=== PATIENT | female | born 1950 | race African-American/Black ===

== ENCOUNTER → 2017-05-28 08:50 | Outpatient (CLI) | payer MEDICARE, SELFPAY ==
--- NOTE | 2017-05-28 09:13 | RAD_ITS ---
STUDY: X-RAY - RIGHT SHOULDER REASON FOR EXAM: Female, 66 years old. Two-week history of right shoulder pain. TECHNIQUE: 4 view(s) of the shoulder. COMPARISON: None. FINDINGS: Normal glenohumeral articulation. There is degenerative arthrosis of the acromioclavicular joint without inferior osseous spur formation. Normal acromion. Normal humeral head and visualized proximal humerus. There is periarticular soft tissue calcification consistent with a calcific tendinitis. Normal visualized pulmonary apex. RAD/Shoulder min 2 Views IMPRESSION: Findings in keeping with calcific tendinitis of the right shoulder. Electronically Signed: Marcos Kaiser MD at 13:12 EDT Tel [phone], Service support ,
[2017-05-28 10:40] LABS: Microalbumin,Random Urine 28.9 mg/L (NO RANGE EST.); Microalbumin:Creatinine Ratio 33.7 mg/g CRE (<30 mg/g CRE)
[2017-05-28 10:52] LABS: AST(SGOT) 42 U/L (15-37); Alanine Aminotransfer ALT/SGPT 76 U/L (13-56); Albumin, Serum 4.2 g/dL (3.2-5.0); Alkaline Phosphatase 75 U/L (45-117); Anion Gap 10 (5-15); BUN 14 mg/dL (7-18); BUN/Creat Ratio 22.2 RATIO (10-20); Calcium,Total 9.3 mg/dL (8.5-10.1); Chloride 104 mmol/L (98-107); Creatinine, Serum 0.63 mg/dL (0.55-1.02); EST Glomerular Filtration Rate 101 mL/min (>60); Est Glom Filt Rate - Afr Amer 122 mL/min (>60); Globulin 4.3 g/dL (2.2-4.2); Glucose 123 mg/dL (74-106); Potassium 3.6 mmol/L (3.5-5.1); Protein, Total 8.5 g/dL (6.4-8.2); Sodium Level 139 mmol/L (136-145)
== END ==
PROVIDERS: Family Provider Family Medicine; PCP Family Medicine; Visit Provider Family Medicine
DX: E11.9 Type 2 diabetes mellitus without complications (principal); M25.519 Pain in unspecified shoulder
CPT/HCPCS: 36415; 73030; 80048; 80076; 82043; 82570

== ENCOUNTER 2017-07-02 11:00 | Outpatient (RCR) | payer MEDICARE, SELFPAY ==
--- NOTE | 2017-06-04 11:28 | HP.PTEVAL ---
Patient's Visit Information ALICE HOBBS is a 66 year old F referred to Physical Therapy by Solitario Waters with a diagnosis of R shoulder pain. Date of Evaluation: 06/04/17 Physical Therapist: Gabriela Che - Visit Plan Frequency: 2x /Week Duration: 4-6 Weeks Plan: 2X/ week for 4 weeks for R shoulder PROM, AAROM, AROM, joint mobs, RC and scapular strengthening, R shoulder US to decrease pain and increase circulation with HEP - Subjective Subjective: They x-rayed her R shoulder and said that it was arthritis. It has been bothering her for awhile. She is R handed. It hurts more with movement. She can sleep ok. She can do most everything but she feels it everyday. SHe can lay on her R shoulder. WHen it first started it was tingling but now not as much. SHe has no neck pain. Sometimes when she reaches she will get a painful catch. She retired from working at a [employer] with a lot of repeated movements. - Pain R shloulder pain Pain Intensity (Out of 10): 0 Comment: 4-5/10 with reaching - Objective L shoulder AROM: 140 degrees Flexion and abduction, 45 degrees ER, T8 IR. R shoulder AROM: 105 degrees flexion, 105 degrees abd, 45 degrees ER, and T12 IR. B UE MMT: B shld flex 4/5, R shld abd 4-/5 and L 4/5, R shld ER 4-/5 and L 4/5, B shld IR 4/5. Posture: good. Pt has increase tightness R pec musculature. Tender to palpation under the R acrominion. PROM R shoulder: able to get to approx 160 degrees with some pain at end range - Goals Goal 1:: I HEP Goal Time Frame: 4-6 Weeks Goal 2:: Increase R shoulder AROM to 140 degrees elevation Goal Time Frame: 4-6 Weeks Goal 3:: Decrease R shoulder pain to 1/10 with ADL's and movement of the R shoulder Goal Time Frame: 4-6 Weeks - Rehabilitation Potential Rehabilitation Potential: Good - Anticipated Interventions Patient/Client Instruction: Educate patient on: Condition, Plan of Care For the Purpose of:: To decrease pain, To decrease swelling/inflammation, To increase ROM, To improve nutrient delivery to tissue, To improve muscle performance and motor function, To improve ability to perform ADL's, To improve performance and independence with ADL's, To improve health of tissue, To decrease soft tissue restriction Therapeutic Exercise to Include: Strength training, Postural training, Flexibilty training, Passive ROM, Active ROM, Scapular Strength/Stabilization For the Purpose of:: To decrease pain, To decrease swelling/inflammation, To increase ROM, To improve nutrient delivery to tissue, To improve muscle performance and motor function, To increase tolerance to activity/condition/position, To improve health of tissue, To decrease soft tissue restriction, To increase flexibility/ROM Manual Therapy Techniques to Include: Mobilization, Passive ROM, Soft tissue mobilization For the Purpose of:: To decrease pain, To increase ROM, To improve nutrient delivery to tissue Cryotherapy (ice pack, ice massage): Yes Ultrasound (thermal/non thermal): Yes For the Purpose of:: To decrease pain, To improve nutrient delivery to tissue Thank you for the opportunity to evaluate your patient. For Medicare and Medicare HMO plans, please review the plan of care and approve it. It will need to be FAXED BACK to us at [phone] for Medicare purposes. Please let me know if there are questions or concerns regarding this plan of care. Physician Signature: Date:
--- NOTE | 2017-07-02 12:19 | HP.PTDCSUM_ITS ---
HP - PT D/C Summary It has been my pleasure to treat ALICE HOBBS under orders from Solitario Waters, for the diagnosis of R shoulder pain for a total of 9 visit(s). Discharge Date: 07/02/17 Please see the following information for a summary of their discharge status. - Subjective Subjective: Pt reports that she is doing better and that she only has pain if she reaches high. She feels that she can do her therapy at home. [facility] - Pain R shloulder pain Pain Intensity (Out of 10): 0 - Overall Improvement % Improvement: 75 - Objective Objective/Function: R shld flex 140 degrees. R shld abd 150 degrees. R shld flex 4/5, abd 4/5 and IR and 4/5 R - Goals Goal 1:: I HEP Goal Progress: Goal Met Goal 2:: Increase R shoulder AROM to 140 degrees elevation Goal Progress: Goal Met Goal 3:: Decrease R shoulder pain to 1/10 with ADL's and movement of the R shoulder Goal Progress: Goal Met - Plan Plan: DC PT to HEP - D/C Information Discharge Comments: DC PT to HEP. If there are questions or concerns regarding this patient's physical therapy, please feel free to call me at [phone]. Thank you for the referral of this patient. Sincerely, Gabriela Che
== END 2017-07-02 19:00 | disposition home or self-care (01) ==
LOC: PT 11:00
PROVIDERS: Family Provider Family Medicine; PCP Family Medicine; Visit Provider Family Medicine
DX: M25.511 Pain in right shoulder (principal)
CPT/HCPCS: 97035; 97110; 97161; 97530

== ENCOUNTER → 2017-12-04 11:19 | Outpatient (CLI) | payer MEDICARE, SELFPAY ==
[2017-12-04 14:20] LABS: AST(SGOT) 41 U/L (15-37); Alanine Aminotransfer ALT/SGPT 80 U/L (13-56); Alkaline Phosphatase 86 U/L (45-117); Anion Gap 10 (5-15); BUN 15 mg/dL (7-18); Bilirubin, Direct 0.15 mg/dL (0.00-0.30); Calcium,Total 9.6 mg/dL (8.5-10.1); Chloride 104 mmol/L (98-107); Cholesterol 116 mg/dL (200); Creatinine, Serum 0.65 mg/dL (0.55-1.02); EST Glomerular Filtration Rate 96 mL/min (>60); Est Glom Filt Rate - Afr Amer 117 mL/min (>60); Globulin 4.7 g/dL (2.2-4.2); Glucose 114 mg/dL (74-106); High Density Lipoprotein 35 mg/dL; Potassium 3.8 mmol/L (3.5-5.1); Protein, Total 8.7 g/dL (6.4-8.2); Sodium Level 140 mmol/L (136-145); Triglycerides 84 mg/dL; Very Low Density Lipoprotein 17 mg/dL (5-40)
[2017-12-04 14:32] LABS: Microalbumin,Random Urine 10.7 mg/L (NO RANGE EST.); Microalbumin:Creatinine Ratio 19.1 mg/g CRE (<30 mg/g CRE)
== END ==
PROVIDERS: Family Provider Family Medicine; PCP Family Medicine; Visit Provider Family Medicine
DX: E11.9 Type 2 diabetes mellitus without complications (principal)
CPT/HCPCS: 36415; 80048; 80061; 80076; 82043; 82570

== ENCOUNTER → 2018-02-09 12:11 | Outpatient (CLI) | payer MEDICARE, SELFPAY ==
--- NOTE | 2018-02-09 12:13 | BI_ITS ---
MAMMOGRAPHY - BILATERAL SCREENING REASON FOR EXAM: Female, 67 years old. Routine annual screening examination. PERTINENT HISTORY: Sister with breast cancer. TECHNIQUE: Digital bilateral breast lan (3D mammographic acquisition) in the CC and MLO projections. 2-D mediolateral oblique (MLO) and craniocaudad (CC) views of both breasts were obtained. CAD: Full Field Digital Mammography with Computer Added Detection was performed. COMPARISON: No comparison mammograms available at this time. If any prior films become available, an addendum to this report can be generated. FINDINGS: Breast Composition: There are scattered areas of fibroglandular density. There are no dominant masses or suspicious calcifications. Benign-appearing bilateral axillary lymph nodes. No other significant abnormalities are identified. BI/SCREENING MAMM (CAD), BILAT IMPRESSION: Negative screening mammogram. Yearly followup mammogram recommended. (A) ASSESSMENT CATEGORY: BIRADS Category 2: Benign. A letter regarding these results will be sent to the patient by the facility within 30 days. Approximately 10% of breast cancers are not detected by mammography. A normal mammogram should not delay biopsy of a clinically suspicious abnormality. [id number] Electronically Signed: Marcos Kaiser MD at 9:13 EST Tel [phone], Service support ,
== END ==
PROVIDERS: Family Provider Family Medicine; PCP Family Medicine; Referring Provider Family Medicine; Visit Provider Family Medicine
DX: Z12.31 Encounter for screening mammogram for malignant neoplasm of breast (principal)
CPT/HCPCS: 77063; 77067

== ENCOUNTER → 2018-06-04 | Outpatient (CLI) | payer MEDICARE, SELFPAY ==
[2018-06-04 12:41] LABS: AST(SGOT) 37 U/L (15-37); Alanine Aminotransfer ALT/SGPT 82 U/L (13-56); Albumin, Serum 4.2 g/dL (3.2-5.0); Alkaline Phosphatase 88 U/L (45-117); Anion Gap 7 (5-15); BUN 15 mg/dL (7-18); BUN/Creat Ratio 24.2 RATIO (10-20); Bilirubin, Direct 0.17 mg/dL (0.00-0.30); Calcium,Total 8.6 mg/dL (8.5-10.1); Chloride 103 mmol/L (98-107); Cholesterol 125 mg/dL (200); Creatinine, Serum 0.62 mg/dL (0.55-1.02); EST Glomerular Filtration Rate 102 mL/min (>60); Est Glom Filt Rate - Afr Amer 124 mL/min (>60); Globulin 3.6 g/dL (2.2-4.2); Glucose 156 mg/dL (74-106); High Density Lipoprotein 33 mg/dL; Potassium 3.8 mmol/L (3.5-5.1); Protein, Total 7.8 g/dL (6.4-8.2); Sodium Level 137 mmol/L (136-145); Triglycerides 96 mg/dL; Very Low Density Lipoprotein 19 mg/dL (5-40)
== END | disposition home or self-care (01) ==
LOC: MFPLAB 10:23
PROVIDERS: Family Provider Family Medicine; PCP Family Medicine; Referring Provider Family Medicine; Visit Provider Family Medicine
DX: E11.9 Type 2 diabetes mellitus without complications (principal)
CPT/HCPCS: 36415; 80048; 80061; 80076

== ENCOUNTER → 2018-09-03 | Outpatient (CLI) | payer MEDICARE, SELFPAY ==
[2018-09-03 10:34] LABS: Anion Gap 10 (5-15); BUN 19 mg/dL (7-18); BUN/Creat Ratio 30.2 RATIO (10-20); Calcium,Total 9.2 mg/dL (8.5-10.1); Chloride 103 mmol/L (98-107); Creatinine, Serum 0.63 mg/dL (0.55-1.02); EST Glomerular Filtration Rate 100 mL/min (>60); Est Glom Filt Rate - Afr Amer 121 mL/min (>60); Glucose 126 mg/dL (74-106); Potassium 3.6 mmol/L (3.5-5.1); Sodium Level 140 mmol/L (136-145)
== END | disposition home or self-care (01) ==
LOC: MFPLAB 08:30
PROVIDERS: Family Provider Family Medicine; PCP Family Medicine; Referring Provider Family Medicine; Visit Provider Family Medicine
DX: E11.9 Type 2 diabetes mellitus without complications (principal)
CPT/HCPCS: 36415; 80048

== ENCOUNTER → 2019-03-17 14:49 | Outpatient (CLI) | payer MEDICARE, SELFPAY ==
--- NOTE | 2019-03-17 14:51 | BI_ITS ---
MAMMOGRAPHY - BILATERAL SCREENING REASON FOR EXAM: Female, 68 years old. Routine annual screening examination. PERTINENT HISTORY: Sister with breast cancer. TECHNIQUE: Digital bilateral breast mere (3D mammographic acquisition) in the CC and MLO projections. 2-D mediolateral oblique (MLO) and craniocaudad (CC) views of both breasts were obtained. CAD: Full Field Digital Mammography with Computer Added Detection was performed. COMPARISON: Comparison is made with prior study dated February 09, 2018. FINDINGS: Breast Composition: There are scattered areas of fibroglandular density. There are no dominant masses or suspicious calcifications. Stable benign-appearing bilateral axillary lymph nodes. No other significant abnormalities are identified. There has been no significant change since the prior study. BI/SCREEN MAMM (CAD) W/MERE BILAT IMPRESSION: Stable bilateral screening mammogram. Yearly follow-up mammogram recommended. (A) ASSESSMENT CATEGORY: BIRADS Category 2: Benign. A letter regarding these results will be sent to the patient by the facility within 30 days. Approximately 10% of breast cancers are not detected by mammography. A normal mammogram should not delay biopsy of a clinically suspicious abnormality. [id number] Electronically Signed: Marcos Kaiser, at 15:39 EST , Service support ,
== END ==
PROVIDERS: PCP Family Medicine; Referring Provider Family Medicine; Visit Provider Family Medicine
DX: Z00.00 Encounter for general adult medical examination without abnormal findings (principal); Z12.31 Encounter for screening mammogram for malignant neoplasm of breast
CPT/HCPCS: 77063; 77067

== ENCOUNTER → 2019-09-01 | Outpatient (CLI) | payer MEDICARE, SELFPAY ==
[2019-09-01 11:07] LABS: Anion Gap 9 (5-15); BUN 15 mg/dL (7-18); BUN/Creat Ratio 23.8 RATIO (10-20); Calcium,Total 9.3 mg/dL (8.5-10.1); Chloride 103 mmol/L (98-107); Creatinine, Serum 0.63 mg/dL (0.55-1.02); EST Glomerular Filtration Rate 100 mL/min (>60); Est Glom Filt Rate - Afr Amer 121 mL/min (>60); Glucose 130 mg/dL (74-106); Potassium 3.4 mmol/L (3.5-5.1); Sodium Level 137 mmol/L (136-145)
== END | disposition home or self-care (01) ==
LOC: MFPLAB 08:32
PROVIDERS: PCP Family Medicine; Visit Provider Family Medicine
DX: I10 Essential (primary) hypertension (principal)
CPT/HCPCS: 36415; 80048

== ENCOUNTER → 2020-03-06 14:24 | Outpatient (CLI) | payer MEDICARE, SELFPAY ==
[2020-03-06 18:38] LABS: Anion Gap 8 (5-15); BUN 14 mg/dL (7-18); BUN/Creat Ratio 24.3 RATIO (10-20); Calcium,Total 9.9 mg/dL (8.5-10.1); Chloride 104 mmol/L (98-107); Cholesterol 116 mg/dL (200); Creatinine, Serum 0.58 mg/dL (0.55-1.02); EST Glomerular Filtration Rate 111 mL/min (>60); Est Glom Filt Rate - Afr Amer 134 mL/min (>60); Glucose 86 mg/dL (74-106); High Density Lipoprotein 35 mg/dL; Potassium 3.6 mmol/L (3.5-5.1); Sodium Level 138 mmol/L (136-145); Triglycerides 96 mg/dL; Very Low Density Lipoprotein 19 mg/dL (5-40)
== END ==
PROVIDERS: PCP Family Medicine; Visit Provider Family Medicine
DX: E11.9 Type 2 diabetes mellitus without complications (principal)
CPT/HCPCS: 36415; 80048; 80061

== ENCOUNTER → 2020-03-20 | Outpatient (CLI) | payer MEDICARE, SELFPAY | END | disposition home or self-care (01) | LOC: LABSPEC 15:15 | PROVIDERS: PCP Family Medicine; Referring Provider Family Medicine; Visit Provider Family Medicine | DX: U07.1 COVID-19 (principal) | CPT/HCPCS: 87635; U0005; U0003 ==

== ENCOUNTER → 2020-04-11 12:17 | Outpatient (CLI) | payer MEDICARE, SELFPAY ==
--- NOTE | 2020-04-11 12:19 | BI_ITS ---
MAMMOGRAPHY - BILATERAL SCREENING REASON FOR EXAM: Female, 69 years old. Routine annual screening examination. PERTINENT HISTORY: Sister with breast cancer. TECHNIQUE: Digital bilateral breast mere (3D mammographic acquisition) in the CC and MLO projections. 2-D mediolateral oblique (MLO) and craniocaudad (CC) views of both breasts were obtained. CAD: Full Field Digital Mammography with Computer Added Detection was performed. COMPARISON: Comparison is made with prior study dated 03/17/2019 and 02/09/2018. FINDINGS: Breast Composition: There are scattered areas of fibroglandular density. There are no dominant masses or suspicious calcifications. Stable benign-appearing bilateral axillary lymph nodes. No other significant abnormalities are identified. There has been no significant change since the prior study. BI/SCRN MAMM (CAD)W/MERE BILAT IMPRESSION: Stable bilateral screening mammogram. Yearly follow-up mammogram recommended. (A) ASSESSMENT CATEGORY: BIRADS Category 2: Benign. A letter regarding these results will be sent to the patient by the facility within 30 days. Approximately 10% of breast cancers are not detected by mammography. A normal mammogram should not delay biopsy of a clinically suspicious abnormality. [id number] Electronically Signed: Marcos Kaiser MD at 13:52 EST , Service support ,
== END ==
PROVIDERS: PCP Family Medicine; Referring Provider Family Medicine; Visit Provider Family Medicine
DX: Z12.31 Encounter for screening mammogram for malignant neoplasm of breast (principal)
CPT/HCPCS: 77063; 77067

== ENCOUNTER → 2020-12-01 09:00 | Outpatient (CLI) | payer MEDICARE, SELFPAY ==
--- NOTE | 2020-12-01 09:09 | RAD_ITS ---
STUDY: X-RAY - RIGHT HAND REASON FOR EXAM: Female, 70 years old. PAIN TECHNIQUE: 3 view(s) of the hand. COMPARISON: None. FINDINGS: Normal radiocarpal articulation. Normal distal radioulnar joint. Normal visualized carpal bones. Normal carpal articulations Normal carpometacarpal articulation of the thumb. Normal second through fifth carpometacarpal joints. Normal metacarpi. Normal metacarpophalangeal joint of the thumb. Normal interphalangeal joint of the thumb. Normal proximal and distal phalanges of the thumb. Normal metacarpophalangeal joints of the second through fifth fingers. Normal proximal and distal interphalangeal joints of the second through fifth fingers. Normal phalanges of the second through fifth fingers. Mild soft tissue edema in the third finger. RAD/Hand Min 3 Views IMPRESSION: No acute bony injury of the hand. Electronically Signed: John Neff DO at 23:55 EDT Tel [phone], Service support ,
[2020-12-01 10:13] LABS: Anion Gap 5 (5-15); BUN 17 mg/dL (7-18); BUN/Creat Ratio 27.5 RATIO (10-20); Calcium,Total 9.5 mg/dL (8.5-10.1); Chloride 105 mmol/L (98-107); Creatinine, Serum 0.62 mg/dL (0.55-1.02); EST Glomerular Filtration Rate 102 mL/min (>60); Est Glom Filt Rate - Afr Amer 123 mL/min (>60); Glucose 145 mg/dL (74-106); Potassium 3.8 mmol/L (3.5-5.1); Sodium Level 140 mmol/L (136-145); Uric Acid 3.5 mg/dL (2.6-6.0)
== END ==
PROVIDERS: PCP Family Medicine; Referring Provider Family Medicine; Visit Provider Family Medicine
DX: M79.643 Pain in unspecified hand (principal); E78.5 Hyperlipidemia, unspecified
CPT/HCPCS: 36415; 73130; 80048; 84550

== ENCOUNTER 2021-06-04 08:56 | Outpatient (CLI) | payer OTHER, SELFPAY ==
[2021-06-04 12:27] LABS: Anion Gap 10 (5-15); BUN 15 mg/dL (7-18); BUN/Creat Ratio 22.5 RATIO (10-20); Calcium,Total 9.7 mg/dL (8.5-10.1); Chloride 102 mmol/L (98-107); Creatinine, Serum 0.67 mg/dL (0.55-1.02); EST Glomerular Filtration Rate 93 mL/min (>60); Est Glom Filt Rate - Afr Amer 112 mL/min (>60); Glucose 113 mg/dL (74-106); Potassium 3.2 mmol/L (3.5-5.1); Sodium Level 139 mmol/L (136-145)
== END 2021-06-04 23:59 | disposition home or self-care (01) ==
LOC: MFPLAB 08:57
PROVIDERS: PCP Family Medicine; Visit Provider Family Medicine
DX: E11.9 Type 2 diabetes mellitus without complications (principal)
CPT/HCPCS: 36415; 80048

== ENCOUNTER → 2022-05-29 | Outpatient (CLI) | payer OTHER, SELFPAY ==
[2022-05-29 11:07] LABS: Anion Gap 5 (5-15); BUN 13 mg/dL (7-18); BUN/Creat Ratio 19.4 RATIO (10-20); Calcium,Total 9.3 mg/dL (8.5-10.1); Chloride 106 mmol/L (98-107); Creatinine, Serum 0.67 mg/dL (0.55-1.02); EST Glomerular Filtration Rate 92 mL/min (>60); Est Glom Filt Rate - Afr Amer 112 mL/min (>60); Glucose 114 mg/dL (74-106); Potassium 3.6 mmol/L (3.5-5.1); Sodium Level 138 mmol/L (136-145)
[2022-05-29 11:23] LABS: Microalbumin,Random Urine 18.9 mg/L (NO RANGE EST.); Microalbumin:Creatinine Ratio 42.5 mg/g CRE (<30 mg/g CRE)
== END | disposition home or self-care (01) ==
LOC: MFPLAB 08:48
PROVIDERS: PCP Family Medicine; Referring Provider Family Medicine; Visit Provider Family Medicine
DX: E11.9 Type 2 diabetes mellitus without complications (principal)
CPT/HCPCS: 36415; 80048; 82043; 82570

== ENCOUNTER → 2022-12-06 | Outpatient (CLI) | payer MEDICARE, SELFPAY ==
[2022-12-06 10:26] LABS: Microalbumin,Random Urine 19.2 mg/L (NO RANGE EST.); Microalbumin:Creatinine Ratio 41.2 mg/g CRE (<30 mg/g CRE)
[2022-12-06 11:16] LABS: ALB/GLOB Ratio 0.9 RATIO (0.9-2.4); AST(SGOT) 27 U/L (15-37); Alanine Aminotransfer ALT/SGPT 58 U/L (13-56); Alkaline Phosphatase 80 U/L (45-117); Anion Gap 9 (5-15); BUN 21 mg/dL (7-18); BUN/Creat Ratio 28.5 RATIO (10-20); Calcium,Total 9.8 mg/dL (8.5-10.1); Chloride 104 mmol/L (98-107); Cholesterol 105 mg/dL (200); Creatinine, Serum 0.74 mg/dL (0.55-1.02); EST Glomerular Filtration Rate 83 mL/min (>60); Est Glom Filt Rate - Afr Amer 100 mL/min (>60); Globulin 4.7 g/dL (2.2-4.2); Glucose 128 mg/dL (74-106); High Density Lipoprotein 28 mg/dL; Potassium 3.5 mmol/L (3.5-5.1); Protein, Total 8.7 g/dL (6.4-8.2); Sodium Level 138 mmol/L (136-145); Triglycerides 169 mg/dL; Very Low Density Lipoprotein 34 mg/dL (5-40)
== END | disposition home or self-care (01) ==
PROVIDERS: PCP Family Medicine; Referring Provider Family Medicine; Visit Provider Family Medicine
DX: E11.9 Type 2 diabetes mellitus without complications (principal)
CPT/HCPCS: 36415; 80053; 80061; 82043; 82570

== ENCOUNTER → 2023-06-05 | Outpatient (CLI) | payer MEDICARE, SELFPAY ==
[2023-06-05 10:35] LABS: Anion Gap 5 (5-15); BUN 17 mg/dL (7-18); BUN/Creat Ratio 25.8 RATIO (10-20); Calcium,Total 9.5 mg/dL (8.5-10.1); Chloride 105 mmol/L (98-107); Cholesterol 136 mg/dL (200); Creatinine, Serum 0.66 mg/dL (0.55-1.02); EST Glomerular Filtration Rate 94 mL/min (>60); Est Glom Filt Rate - Afr Amer 114 mL/min (>60); Glucose 119 mg/dL (74-106); High Density Lipoprotein 30 mg/dL; Potassium 3.3 mmol/L (3.5-5.1); Sodium Level 138 mmol/L (136-145); Triglycerides 127 mg/dL; Very Low Density Lipoprotein 25 mg/dL (5-40)
== END | disposition home or self-care (01) ==
LOC: MFPLAB 08:20
PROVIDERS: PCP Family Medicine; Visit Provider Family Medicine
DX: I10 Essential (primary) hypertension (principal)
CPT/HCPCS: 36415; 80048; 80061

== ENCOUNTER → 2023-06-11 | Outpatient (CLI) | payer MEDICARE, SELFPAY ==
--- NOTE | 2023-06-11 08:45 | BI_ITS ---
MAMMOGRAPHY - BILATERAL SCREENING REASON FOR EXAM: Female, 72 years old. Routine annual screening examination. PERTINENT HISTORY: Sister with breast cancer. TECHNIQUE: Digital bilateral breast mere (3D mammographic acquisition) in the CC and MLO projections. 2-D mediolateral oblique (MLO) and craniocaudad (CC) views of both breasts were obtained. CAD: Full Field Digital Mammography with Computer Added Detection was performed. COMPARISON: Comparison is made with prior study dated April 11, 2020 and March 17, 2019. FINDINGS: Breast Composition: There are scattered areas of fibroglandular density. There are no dominant masses or suspicious calcifications. Stable bilateral fat containing axillary lymph nodes. No other significant abnormalities are identified. There has been no significant change since the prior study. BI/SCRN MAMM (CAD)W/MERE BILAT IMPRESSION: Stable bilateral screening mammogram. Yearly follow-up mammogram recommended. (A) ASSESSMENT CATEGORY: BIRADS Category 2: Benign. A letter regarding these results will be sent to the patient by the facility within 30 days. Approximately 10% of breast cancers are not detected by mammography. A normal mammogram should not delay biopsy of a clinically suspicious abnormality. [id number] Electronically Signed: Marcos Kaiser MD at 9:51 EDT ,
== END | disposition home or self-care (01) ==
LOC: OPBI 08:43
PROVIDERS: PCP Family Medicine; Referring Provider Family Medicine; Visit Provider Family Medicine
DX: Z12.31 Encounter for screening mammogram for malignant neoplasm of breast (principal); Z80.3 Family history of malignant neoplasm of breast
CPT/HCPCS: 77063; 77067

== ENCOUNTER → 2023-09-03 | Outpatient (CLI) | payer MEDICARE, SELFPAY ==
[2023-09-03 12:26] LABS: Anion Gap 9 (5-15); BUN 19 mg/dL (7-18); BUN/Creat Ratio 26.1 RATIO (10-20); Calcium,Total 9.9 mg/dL (8.5-10.1); Chloride 101 mmol/L (98-107); Creatinine, Serum 0.73 mg/dL (0.55-1.02); EST Glomerular Filtration Rate 84 mL/min (>60); Est Glom Filt Rate - Afr Amer 101 mL/min (>60); Glucose 116 mg/dL (74-106); Potassium 3.3 mmol/L (3.5-5.1); Sodium Level 138 mmol/L (136-145)
== END | disposition home or self-care (01) ==
LOC: MFPLAB 08:53
PROVIDERS: PCP Family Medicine; Visit Provider Family Medicine
DX: E11.9 Type 2 diabetes mellitus without complications (principal)
CPT/HCPCS: 36415; 80048

== ENCOUNTER → 2023-12-04 | Outpatient (CLI) | payer MEDICARE, SELFPAY ==
[2023-12-04 11:14] LABS: Anion Gap 8 (5-15); BUN 17 mg/dL (7-18); BUN/Creat Ratio 21.7 RATIO (10-20); Calcium,Total 10.3 mg/dL (8.5-10.1); Chloride 102 mmol/L (98-107); Creatinine, Serum 0.78 mg/dL (0.55-1.02); EST Glomerular Filtration Rate 77 mL/min (>60); Est Glom Filt Rate - Afr Amer 93 mL/min (>60); Glucose 115 mg/dL (74-106); Potassium 3.2 mmol/L (3.5-5.1); Sodium Level 138 mmol/L (136-145)
== END | disposition home or self-care (01) ==
LOC: MFPLAB 09:04
PROVIDERS: PCP Family Medicine; Visit Provider Family Medicine
DX: E87.6 Hypokalemia (principal)
CPT/HCPCS: 36415; 80048

== ENCOUNTER → 2024-06-03 | Outpatient (CLI) | payer MEDICARE, SELFPAY ==
[2024-06-03 10:38] LABS: ALB/GLOB Ratio 1.2 RATIO (0.9-2.4); AST(SGOT) 33 U/L (<=31); Alanine Aminotransfer ALT/SGPT 46 U/L (<=34); Albumin, Serum 4.4 g/dL (3.4-4.8); Alkaline Phosphatase 72 U/L (35-104); Anion Gap 15 (5-15); BUN 19 mg/dL (4-19); BUN/Creat Ratio 20.4 RATIO (10-20); Calcium,Total 10.4 mg/dL (7.6-11.0); Carbon Dioxide 23.7 mmol/L (21.0-32.0); Chloride 99 mmol/L (98-108); Cholesterol 118 mg/dL (<=200); Creatinine, Serum 0.95 mg/dL (0.70-1.20); EST Glomerular Filtration Rate 64 (>60); Globulin 3.8 g/dL (2.2-4.2); Glucose 116 mg/dL (70-99); High Density Lipoprotein 31 mg/dL; Low Density Lipoprotein Calc. 62 mg/dL; Potassium 3.7 mmol/L (3.3-5.1); Protein, Total 8.3 g/dL (5.9-8.4); Sodium Level 138 mmol/L (133-145); Total Bilirubin 0.36 mg/dL (0.00-1.30); Triglycerides 124 mg/dL; Very Low Density Lipoprotein 25 mg/dL (5-40); cholesterol:hdl ratio screen 3.77
[2024-06-03 11:38] LABS: Microalbumin:Creatinine Ratio 2933.5 mg/g CRE
== END | disposition home or self-care (01) ==
PROVIDERS: PCP Family Medicine; Referring Provider Family Medicine; Visit Provider Family Medicine
DX: E11.9 Type 2 diabetes mellitus without complications (principal)
CPT/HCPCS: 36415; 80053; 80061; 82043; 82570

== ENCOUNTER → 2024-06-21 | Outpatient (CLI) | payer MEDICARE, SELFPAY ==
--- NOTE | 2024-06-21 07:36 | BI_ITS ---
EXAM: SCRN MAMM (CAD)W/MERE BILAT DATE: 06/21/2024 CLINICAL HISTORY: F, Age 73 y/o , SCREENING BREAST CANCER RISK ASSESSMENT: Has not been calculated. TECHNIQUE: Bilateral screening digital breast tomosynthesis with 2D and 3D images. Computer aided detection. COMPARISON: Prior exam(s) dated 06/11/2023 and 04/11/2019. FINDINGS: TISSUE DENSITY: The breast tissue is composed of scattered area of fibroglandular density. Bilateral Breast Mammographic Findings: No significant masses, calcifications or other abnormalities are identified. Benign round microcalcifications are seen in both breasts. BI/SCRN MAMM (CAD)W/MERE BILAT IMPRESSION: OVERALL FINAL ASSESSMENT: BIRADS 2 BENIGN FINDING RECOMMENDATION: Routine annual follow-up in 1 Year A letter with findings and recommendations will be mailed to the patient. Reading Location: [id number]
== END | disposition home or self-care (01) ==
PROVIDERS: PCP Family Medicine; Referring Provider Family Medicine; Visit Provider Family Medicine
DX: Z12.31 Encounter for screening mammogram for malignant neoplasm of breast (principal)
CPT/HCPCS: 77063; 77067

== ENCOUNTER 2024-07-28 06:27 | Day surgery (SDC) | payer MEDICARE, SELFPAY ==
--- NOTE | 2024-07-26 15:00 | PAT.ANESEVAL ---
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 When Was Last Pacemaker Check QUESTION #4 FULL TEXT: You/Your Family Experience fever (hyperthermia) with Anesthesia Last Oral Intake Last Oral intake: Last Oral Intake NPO since Meds taken in AM with sips of water? 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 Has anyone observed you stop No 07/26/24 09:25 breathing during sleep? STOP Results Negative 07/26/24 09:25 QUESTION #5 FULL TEXT : Do you snore loudly (louder than talking or can be heard through closed doors)? 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 Specify any problems Hx of Preganancy in last 3 No 07/26/24 09:25 Months Nurse Filling Out Transfusion JZOLLINGE 07/26/24 09:25 & Questions: Date: 07/26/24 07/26/24 09:25 Time: 07/26/24 09:25 Patient unable to answer at this time (ie. 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: /Reproductive Hx- box sealing machine operator Hx Now No 07/26/24 09:25 Gestational Age (in weeks): EDC: Hx Hx Para Hx Section SAB No 07/26/24 09:25 [facility] Medical History (Updated 07/26/24 @ 09:38 by Andreia Monahan) Hx of electrocardiogram Wears dentures Wears glasses Diabetes Dietary restriction Non-smoker Shortness of breath on exertion History of stress test Home Medications ?Medication ?Instructions ?Recorded ?Last Taken ?Type amlodipine 10 mg tablet 10 mg PO DAILY 07/26/24 Unknown History clonidine HCl 0.1 mg tablet 0.1 mg PO BID 07/26/24 Unknown History empagliflozin 10 mg tablet 10 mg PO DAILY 07/26/24 Unknown History (Jardiance) hydrochlorothiazide 25 mg tablet 25 mg PO DAILY 07/26/24 Unknown History losartan 100 mg tablet 100 mg PO DAILY 07/26/24 Unknown History metformin 1,000 mg tablet 1,000 mg PO BID 07/26/24 Unknown History metoprolol tartrate 50 mg tablet 50 mg PO BID 07/26/24 Unknown History potassium chloride 20 mEq 20 meq PO DAILY 07/26/24 Unknown History tablet,extended release rosuvastatin 20 mg tablet 20 mg PO DAILY 07/26/24 Unknown History Allergy/AdvReac Type Severity Reaction Status Date / Time No Known Allergies Allergy Verified 07/26/24 09:13 Surgical History (Updated 07/26/24 @ 09:38 by Andreia Monahan) Hx of colonoscopy History of heart surgery Social History Smoking Status: Never smoker Audit: Pertinent Findings Pertinent Findings EKG Perinent findings: 2020. Sinus tachycardia [address] and T wave abnormality. Recommendation Anesthesia Recommendation Anesthesia recommendation: OPTIMIZED for anesthesia
[2024-07-28] VITALS (7 sets, daily range): BP systolic 105–132; BP diastolic 50–65; PULSE 74–80; RESP 14–16; TEMP 36.3–36.4; O2SAT 98–100; BMI 27.6
--- OUTSIDE RECORDS SUMMARY | 2024-07-28 06:29 | XMS RPT_ITS | CCD ---
Author Organization [facility] Care Team Providers Care Dispensary Clerk Name Role Phone Evelin PERES, Dr. Jerez Primary Care Provider Evelin PERES, Dr. Jerez Attending Provider [phone] Evelin PERES, Dr. Jerez Referring Provider Solitario Waters Attending Unavailable Evelin, Solitario Primary Care Unavailable Waters, Solitario Referring Unavailable Waters, Solitario Attending Unavailable Waters, Solitario Primary Care Unavailable Waters, Solitario Referring Unavailable Robotham, Marleni Attending Unavailable Waters, Solitario Primary Care Unavailable Waters, Solitario Referring Unavailable Waters, Solitario Attending Unavailable Waters, Solitario Primary Care Unavailable Waters, Solitario Attending Unavailable Waters, Solitario Primary Care Unavailable Problems Active Problems Problem Classification Problem Date Documented Da te Episodic/Chronic Diabetes mellitus without complication (1 source) Type 2 diabetes mellitus without complications; Translations: [Type 2 diabetes mellitus without complications] Onset: 06-08-2024 Chronic Other screening for suspected conditions (not mental disorders or infectious disease) (1 source) Encounter for screening mammogram for malignant neoplasm of breast; Translations: [Encounter for screening mammogram for malignant neoplasm of breast] Onset: 06-25-2024 Episodic Past or Other Problems Problem Classification Problem Date Documented Da te Episodic/Chronic Fluid and electrolyte disorders (1 source) Hypokalemia; Translations: [Hypokalemia] Onset: 12-25-2023 Episodic Results Test Name Value Interpretation Reference Range Facility MR/PATFamilia 07-26-2024 /[facility] [place] [facility] Medical Records Department [address] [place] [address] PAT - Anesthesia 07/26/24 1500 MR#: [id number] Acct: [id number] Name: ALICE HOBBS Rep #: [id number] : 1950 73 From: Chip Villeda MD PCP: Dr. Solitario Waters MD Status:PRE SDC Y Race: AA Location: EN Pre-Assessment Diagnosis/Proposed Procedure Planned Operative Procedure(s): Colonoscopy Anesthesia History Anesthesia History - fan balancer: Anesthesia History - fan balancer Hx Hospitalization No 07/26/24 09:25 Any Problems With Anesthesia No 07/26/24 09:25 Cholinesterase deficiency No 07/26/24 09:25 You/Your Family Experience No 07/26/24 09:25 fever (hyperthermia) with Relationship Recent Exposure to Contagious Disease Does patient have nerve No 07/26/24 09:25 stimulator Patient instructed to have device shut off --Does patient have Pacemaker or ICD? When Was Last Pacemaker Check QUESTION #4 FULL TEXT: You/Your Family Experience fever (hyperthermia) with Anesthesia Last Oral Intake Last Oral intake: Last Oral Intake NPO since Meds taken in AM with sips of water? Meds patient instructed to take am of surgery PONV PONV - fan balancer: PONV - fan balancer Female Yes 07/26/24 09:25 HX of Motion Sickness No 07/26/24 09:25 HX of N/V After Surgery No 07/26/24 09:25 Non-Smoker Yes 07/26/24 09:25 Duration of Surgery greater No 07/26/24 09:25 than 60 minutes Number of Risk Factors 2 07/26/24 09:25 PONV Score Moderate Risk 07/26/24 09:25 Respiratory Assessment Respiratory Assessment - fan balancer: Respiratory Tract Infection Hx - fan balancer Hx Respiratory Tract Infection No 07/26/24 09:25 STOP Sleep Apnea STOP Sleep Apnea - fan balancer: STOP Sleep Apnea - fan balancer Hx Hypertension Yes 07/26/24 09:25 Hx Sleep Apnea No 07/26/24 09:25 CPAP BIPAP Do you snore loudly (louder No 07/26/24 09:25 than talking or can be heard Do you often feel tired/ No 07/26/24 09:25 fatigued/ sleepy during daytime? Has anyone observed you stop No 07/26/24 09:25 breathing during sleep? STOP Results Negative 07/26/24 09:25 QUESTION #5 FULL TEXT : Do you snore loudly (louder than talking or can be heard through closed doors)? 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 Specify any problems Hx of Preganancy in last 3 No 07/26/24 09:25 Months Nurse Filling Out Transfusion JZOLLGERTRUDIS 07/26/24 09:25 Questions: Date: 07/26/24 07/26/24 09:25 Time: 07/26/24 09:25 Patient unable to answer at this time (ie. confused, unrespo /Reproduction History /Reproductive History - fan balancer: /Reproductive Hx- fan balancer Hx Now No 07/26/24 09:25 Gestational Age (in weeks): EDC: Hx Hx Para Hx Section SAB No 07/26/24 09:25 REPLACED BY [facility] Medical History (Updated 07/26/24 @ 09:38 by Andreia Monahan) Hx of electrocardiogram Wears dentures Wears glasses Diabetes Dietary restriction Non-smoker Shortness of breath on exertion History of stress test Home Medications ???Medication ???Instructions ???Recorded ???Last Taken ???Type amlodipine 10 mg tablet 10 mg PO DAILY 07/26/24 Unknown Hi story clonidine HCl 0.1 mg tablet 0.1 mg PO BID 07/26/24 Unknown His tory empagliflozin 10 mg tablet 10 mg PO DAILY 07/26/24 Unknown Hi story (Jardiance) hydrochlorothiazide 25 mg tablet 25 mg PO DAILY 07/26/24 Unknown Hi story losartan 100 mg tablet 100 mg PO DAILY 07/26/24 Unknown H istory metformin 1,000 mg tablet 1,000 mg PO BID 07/26/24 Unknown H istory metoprolol tartrate 50 mg tablet 50 mg PO BID 07/26/24 Unknown Hist ory potassium chloride 20 mEq 20 meq PO DAILY 07/26/24 Unknown H istory tablet,extended release rosuvastatin 20 mg tablet 20 mg PO DAILY 07/26/24 Unknown Hi story Allergy/AdvReac Type Severity Reaction Status Date / Time No Known Allergies Allergy Verifi (more content not included)... Normal [facility] Breast imaging reportOrdered By: Radha Billingsley on 06-21-2024 Study report [facility] Imaging Services [address] [place] [address] SCRN MAMM (CAD)W/MERE BILAT MR#: [id number] Acct: [id number] Name: ALICE HOBBS Rep #: [id number] : 1950 F 73 From: Jacob Billingsley DO PCP: Dr. Solitario Waters MD Status: RYLEY WORRELL Study:SCRN MAMM (CAD)W/MERE BILAT Date of Exa m: 06/21/24 Exam# [id number] Ordering Dr: Solitario Waetrs MD EXAM: SCRN MAMM (CAD)W/MERE BILAT DATE: 06/21/2024 CLINICAL HISTORY: F, Age 73 y/o , SCREENING BREAST CANCER RISK ASSESSMENT: Has not been calculated. TECHNIQUE: Bilateral screening digital breast tomosynthesis with 2D and 3D images. Computeraided detection. COMPARISON: Prior exam(s) dated 06/11/2023 and 04/11/2019. FINDINGS: TISSUE DENSITY: The breast tissue is composed of scattered area of fibroglandular density. Bilateral Breast Mammographic Findings: No significant masses, calcifications or other abnormalities are identified. Benign round microcalcifications are seen in both breasts. BI/SCRN MAMM (CAD)W/MERE BILAT IMPRESSION: OVERALL FINAL ASSESSMENT: BIRADS 2 BENIGN FINDING RECOMMENDATION: Routine annual follow-up in 1 Year A letter with findings and recommendations will be mailed to the patient. Reading Location: [id number] CC: Dr. Solitario Waters MD ~ Guest Relations Agent: Signed [facility] SCRN MAMM (CAD)W/MERE BILATo n 06-21-2024 SCRN MAMM (CAD)W/MERE BILAT [facility] Imaging Services [address] [place] [address] SCRN MAMM (CAD)W/MERE BILAT MR#: [id number] Acct: [id number] Name: ALICE HOBBS Rep #: [id number] : 1950 F 73 From: Radha Anderson O PCP: Dr. Solitario Waters MD Status: REG CLI Study: SCRN MAMM (CAD)W/MERE BILAT Date of Exam: 07/11 Exam# [id number] Ordering Dr: Solitario Waters MD EXAM: SCRN MAMM (CAD)W/MERE BILAT DATE: 06/21/2024 CLINICAL HISTORY: F, Age 73 y/o , SCREENING BREAST CANCER RISK ASSESSMENT: Has not been calculated. TECHNIQUE: Bilateral screening digital breast tomosynthesis with 2D and 3D images. Computer aided detection. COMPARISON: Prior exam(s) dated 06/11/2023 and 04/11/2019. FINDINGS: TISSUE DENSITY: The breast tissue is composed of scattered area of fibroglandular density. Bilateral Breast Mammographic Findings: No significant masses, calcifications or other abnormalities are identified. Benign round microcalcifications are seen in both breasts. BI/SCRN MAMM (CAD)W/MERE BILAT IMPRESSION: OVERALL FINAL ASSESSMENT: BIRADS 2 BENIGN FINDING RECOMMENDATION: Routine annual follow-up in 1 Year A letter with findings and recommendations will be mailed to the patient. Reading Location: [facility] CC: Dr. Solitario Waters MD Guest Relations Agent: Signed Normal [facility] Albumin DL <= 20 mg/L (U) [M ass/Vol]Ordered By: Solitario Waters on 06-03-2024 Urine Random Microalbumin 181.0 mg/L NO RANGE EST. [facility] Anion gap in Serum or Plasma Ordered By: Solitario Waters on 06-03-2024 Anion gap [Moles/Vol] 15 mmol/L 5-15 [facility] BUN/creatinine ratioOrdered By: Solitario Waters on 06-03-2024 Urea nitrogen/Creatinine [Mass ratio] 20.4 mg/mg High 10-20 [facility] Bilirubin, totalOrdered By: Solitario Waters on 06-03-2024 Bilirubin [Mass/Vol] 0.36 mg/dL 0.00-1.30 [facility] Calculated very low density lipoprotein (VLDL) cholesterol measurementOrdered By: Solitario Waters on 06-03-2024 Calculated very low density lipoprotein (VLDL) cholesterol measurement 25 mg/dL 5-40 [facility] VLDL Cholesterol 25 mg/dL 5-40 [facility] Carbon dioxide, total [Moles /volume] in Central venous bloodOrdered By: Solitario Waters on 06-03-2024 CO2 [Moles/Vol] 23.7 mmol/L 21.0-32.0 [facility] Chloride assayOrdered By: Tremayne Waters on 06-03-2024 Chloride [Moles/Vol] 99 mmol/L 98-108 [facility] Comprehensive Metabolic Prof ilon 06-03-2024 Albumin [Mass/Vol] 4.4 g/dL Normal 3.4-4.8 [facility] Comment on above: Performed By: #### L 500.4050, L500.4100, L502.0250 #### [facility] [address] [place], [address] Albumin/Globulin [Mass ratio] 1.2 {ratio} Normal 0.9-2.4 [facility] Comment on above: Performed By: #### L 500.4050, L500.4100, L502.0250 #### [facility] [address] [place], [address] ALK PHOS 72 U/L Normal 35-104 [facility] Comment on above: Performed By: #### L 500.4050, L500.4100, L502.0250 #### [facility] [address] [place], [address] ALT [Catalytic activity/Vol] 46 U/L High <=34 [facility] Comment on above: Performed By: #### L 500.4050, L500.4100, L502.0250 #### [facility] [address] [place], [address] AST [Catalytic activity/Vol] 33 U/L High <=31 [facility] Comment on above: Performed By: #### L 500.4050, L500.4100, L502.0250 #### [facility] [address] [place], [address] Bilirubin [Mass/Vol] 0.36 mg/dL Normal 0.00-1.30 [facility] Comment on above: Performed By: #### L 500.4050, L500.4100, L502.0250 #### [facility] [address] [place], [address] BUN/CRE 20.4 RATIO High 10-20 [facility] Comment on above: Performed By: #### L 500.4050, L500.4100, L502.0250 #### [facility] [address] [place], [address] Calcium [Mass/Vol] 10.4 mg/dL Normal 7.6-11.0 [facility] Comment on above: Performed By: #### L 500.4050, L500.4100, L502.0250 #### [facility] [address] [place], [address] Chloride [Moles/Vol] 99 mmol/L Normal 98-108 [facility] Comment on above: Performed By: #### L 500.4050, L500.4100, L502.0250 #### [facility] [address] [place], [address] CO2 [Moles/Vol] 23.7 mmol/L Normal 21.0-32.0 [facility] Comment on above: Performed By: #### L 500.4050, L500.4100, L502.0250 #### [facility] [address] [place], [address] Creatinine [Mass/Vol] 0.95 mg/dL Normal 0.70-1.20 [facility] Comment on above: Performed By: #### L 500.4050, L500.4100, L502.0250 #### [facility] [address] [place], [address] GAP 15 Normal 5-15 [facility] Comment on above: Performed By: #### L 500.4050, L500.4100, L502.0250 #### [facility] [address] [place], [address] GFR/1.73 sq M.predicted among non-blacks MDRD (S/P/Bld) [Vol rate/Area] 64 mL/min/{1.73_m2} Normal >60 [facility] Comment on above: Result Comment: mL/m in/1.73m2 CKD-EPI Creatinine Equation (2020) Performed By: #### L 500.4050, L500.4100, L502.0250 #### [facility] [address] [place], [address] Globulin (S) [Mass/Vol] 3.8 g/dL Normal 2.2-4.2 [facility] Comment on above: Performed By: #### L 500.4050, L500.4100, L502.0250 #### [facility] [address] [place], [address] Glucose [Mass/Vol] 116 mg/dL High 70-99 [facility] Comment on above: Performed By: #### L 500.4050, L500.4100, L502.0250 #### [facility] [address] [place], [address] Potassium [Moles/Vol] 3.7 mmol/L Normal 3.3-5.1 [facility] Comment on above: Performed By: #### L 500.4050, L500.4100, L502.0250 #### [facility] [address] [place], [address] Sodium [Moles/Vol] 138 mmol/L Normal 133-145 [facility] Comment on above: Performed By: #### L 500.4050, L500.4100, L502.0250 #### [facility] [address] [place], [address] T PROT 8.3 g/dL Normal 5.9-8.4 [facility] Comment on above: Performed By: #### L 500.4050, L500.4100, L502.0250 #### [facility] [address] [place], [address] Urea nitrogen [Mass/Vol] 19 mg/dL Normal 4-19 [facility] Comment on above: Performed By: #### L 500.4050, L500.4100, L502.0250 #### [facility] [address] [place], [address] Creatinine Unsp time (U) [Ma ss/Vol]Ordered By: Solitario Waters on 06-03-2024 Creatinine (U) [Mass/Vol] 61.70 mg/dL 28.00-217.00 [facility] GFR/1.73 sq M.predicted shaan g non-blacks MDRD (S/P/Bld) [Vol rate/Area]Ordered By: Solitario aWters on 06-03-2024 Estimated GFR (MDRD) Non-Af Amer [address] >60 [facility] Comment on above: mL/min/1.73m2 CKD-EP I Creatinine Equation (2020) Glomerular filtration rate ( GFR) estimation/1.73 sq m using serum, plasma, or whole bOrdered By: Solitario Waters on 06-03-2024 GFR/1.73 sq M.predicted among non-blacks MDRD (S/P/Bld) [Vol rate/Area] 64 mL/min/{1.73_m2} >60 [facility] Comment on above: mL/min/1.73m2 CKD-EP I Creatinine Equation (2020) LDL calc ser/plasOrdered By: Solitario Waters on 06-03-2024 Cholesterol in LDL [Mass/Vol] 62 mg/dL [facility] Comment on above: Wenbaiyzzh=433-667 m g/dL & Higher Cyvv=103 mg/dL or greater LDL Cholesterol, Calculated 62 mg/dL [facility] Comment on above: Qskevfeoqo=383-187 m g/dL & Higher Urvz=499 mg/dL or greater Laboratory - Chemistry and C hemistry - challengeOrdered By: Solitario Waters on 06-03-2024 AST [Catalytic activity/Vol] 33 U/L High <32 [facility] Lipid Profileon 06-03-2024 CHOL:HDL 3.[address] [facility] Comment on above: Performed By: #### L 500.4050, L500.4100, L502.0250 #### [facility] [address] [place], [address] Cholesterol [Mass/Vol] 118 mg/dL Normal <=200 [facility] Comment on above: Result Comment: Chol esterol level, Desirable <200 mg/dL Borderline high cholesterol 200-239 mg/dL High cholesterol >=240 mg/dL Recommendations of the NCEP Adult Treatment Panel for the following risk-cutoff thresholds for the [place] population. Performed By: #### L 500.4050, L500.4100, L502.0250 #### [facility] [address] [place], [address] Cholesterol in HDL [Mass/Vol] 31 mg/dL Low [facility] Comment on above: Result Comment: Yani onal Cholesterol Education Program (NCEP) guidelines: <40 mg/dL: Low HDL-cholesterol (major risk factor for CHD) >= 60 mg/dL: High HDL-cholesterol (negative risk factor for CHD) HDL-cholesterol is affected by a number of factors, e.g. smoking, exercise, hormones, sex and age. Performed By: #### L 500.4050, L500.4100, L502.0250 #### [facility] [address] [place], [address] Cholesterol in LDL [Mass/Vol] 62 mg/dL Normal [facility] Comment on above: Result Comment: Bord sutcoz=843-222 mg/dL Higher Xuly=416 mg/dL or greater Performed By: #### L 500.4050, L500.4100, L502.0250 #### [facility] [address] [place], [address] Cholesterol in VLDL [Mass/Vol] 25 mg/dL Normal 5-40 [facility] Comment on above: Performed By: #### L 500.4050, L500.4100, L502.0250 #### [facility] [address] [place], [address] Triglyceride [Mass/Vol] 124 mg/dL Normal [facility] Comment on above: Result Comment: The drugs N-Acetylcysteine and Metamizole may falsely depress this assay. Normal range: <150 mg/dL Borderline High: 150-199 mg/dL High: 200-499 mg/dL Very High: >500 mg/dL Performed By: #### L 500.4050, L500.4100, L502.0250 #### [facility] [address] [place], [address] Microalb:Creat Ratio,Random URon 06-03-2024 Creatinine [Mass/Vol] 61.70 mg/dL Normal 28.00-217.00 [facility] Comment on above: Performed By: #### L 500.4050, L500.4100, L502.0250 #### [facility] [address] [place], [address] MALB:CREAT 2933.5 mg/g CRE Normal [facility] Comment on above: Performed By: #### L 500.4050, L500.4100, L502.0250 #### [facility] [address] [place], [address] MICROALBUMIN,UR 181.0 mg/L Normal NO RANGE EST. [facility] Comment on above: Performed By: #### L 500.4050, L500.4100, L502.0250 #### [facility] [place], [address] Microalbumin/creat ratio urO rdered By: Solitario Waters on 06-03-2024 Urine Microalbumin/Creatinin e Ratio 2933.5 mg/g CRE [facility] Potassium (Unsp spec) [Mass/ Vol]Ordered By: Solitario Waters on 06-03-2024 Potassium [Moles/Vol] 3.7 mmol/L 3.3-5.1 [facility] Potassium measurement (mass/ volume)Ordered By: Solitario Waters on 06-03-2024 Potassium (Unsp spec) [Mass/Vol] 3.7 mmol/L 3.3-5.1 [facility] Random urine creatinine kaylynn urement (mass/volume)Ordered By: Solitario Waters on 06-03-2024 Creatinine Unsp time (U) [Mass/Vol] 61.70 mg/dL 28.00-217.00 [facility] Screening total cholesterol/ high density lipoprotein (HDL) cholesterol ratioOrdered By: Solitario Waters on 06-03-2024 Cholesterol.total/Chol esterol in HDL [Mass ratio] 3.77 {ratio} [facility] Serum creatinine measurement (mass/volume)Ordered By: Solitario Waters on 06-03-2024 Creatinine [Mass/Vol] 0.95 mg/dL 0.70-1.20 [facility] Serum globulin measurementOr dered By: Solitario Waters on 06-03-2024 Globulin (S) [Mass/Vol] 3.8 g/dL 2.2-4.2 [facility] Serum glucose measurement (m ass/volume)Ordered By: Solitario Waters on 06-03-2024 Glucose [Mass/Vol] 116 mg/dL High 70-99 [facility] Serum or plasma alanine oseguera otransferase (ALT) measurementOrdered By: Solitario Waters on 06-03-2024 ALT [Catalytic activity/Vol] 46 U/L High <35 [facility] Serum or plasma albumin kaylynn urement (mass/volume)Ordered By: Solitario Waters on 06-03-2024 Albumin [Mass/Vol] 4.4 g/dL 3.4-4.8 [facility] Serum or plasma albumin/glob ulin mass ratioOrdered By: Solitario Waters on 06-03-2024 Albumin/Globulin [Mass ratio] 1.2 {ratio} 0.9-2.4 [facility] Serum or plasma alkaline emanuel sphatase measurementOrdered By: Solitario Waters on 06-03-2024 ALP [Catalytic activity/Vol] 72 U/L 35-104 [facility] Serum or plasma calcium kaylynn urement (mass/volume)Ordered By: Solitario Waters on 06-03-2024 Calcium [Mass/Vol] 10.4 mg/dL 7.6-11.0 [facility] Serum or plasma cholesterol in HDL measurement (mass/volume)Ordered By: Solitario Waters on 06-03-2024 Cholesterol in HDL [Mass/Vol] 31 mg/dL Low >40 [facility] Comment on above: National Cholesterol Education Program (NCEP) guidelines:<40 mg/dL: Low HDL-cholesterol (major risk factor for CHD)>= 60 mg/dL: High HDL-cholesterol (negative risk factor for CHD)HDL-cholesterol is affected by a number of factors, e.g. smoking, exercise, hormones, sex and age. Serum or plasma cholesterol measurement (mass/volume)Ordered By: Solitario Waters on 06-03-2024 Cholesterol [Mass/Vol] 118 mg/dL <201 [facility] Comment on above: Cholesterol level, D esirable <200 mg/dLBorderline high cholesterol 200-239 mg/dLHigh cholesterol >=240 mg/dLRecommendations of the NCEP Adult Treatment Panel for the following risk-cutoff thresholds for the [place] population. Serum or plasma urea nitroge n measurement (mass/volume)Ordered By: Solitario Waters on 06-03-2024 Urea nitrogen [Mass/Vol] 19 mg/dL 4-19 [facility] Sodium levelOrdered By: Solitario Waters on 06-03-2024 Sodium [Moles/Vol] 138 mmol/L 133-145 [facility] Total proteinOrdered By: Gabrielle Waters on 06-03-2024 Protein [Mass/Vol] 8.3 g/dL 5.9-8.4 [facility] Triglycerides measurementOrd ered By: Solitario Waters on 06-03-2024 Triglyceride [Mass/Vol] 124 mg/dL <199 [facility] Comment on above: The drugs N-Acetylcy steine and Metamizole may falsely depress this assay. Normal range: <150 mg/dLBorderline High: 150-199 mg/dLHigh: 200-499 mg/dLVery High: >500 mg/dL Urine albumin measurement [facility] detection limit of 20 mg/L or less (mass/volume)Ordered By: Solitario Waters on 06-03-2024 Albumin DL <= 20 mg/L (U) [Mass/Vol] 181.0 mg/L NO RANGE EST. [facility] Basic Metabolic Profile (BMP )on 12-04-2023 BUN/CRE 21.7 RATIO High 12-06 [facility] Comment on above: Performed By: #### L 500.2500 #### [facility] [address] [place], [address] CA,Total 10.3 mg/dL High 8.5-10.1 [facility] Comment on above: Performed By: #### L 500.2500 #### [facility] [address] [place], [address] Chloride [Moles/Vol] 102 mmol/L Normal 98-107 [facility] Comment on above: Performed By: #### L 500.2500 #### [facility] [address] [place], [address] CO2 [Moles/Vol] 28.0 mmol/L Normal 21.0-32.0 [facility] Comment on above: Performed By: #### L 500.2500 #### [facility] [address] [place], [address] Creatinine [Mass/Vol] 0.78 mg/dL Normal 0.55-1.02 [facility] Comment on above: Result Comment: The validity of the calculated GFR GFRAA in patients over 70 years has not been determined. Clinical correlation is essential. Performed By: #### L 500.2500 #### [facility] [address] [place], [address] EST GFR - AA 93 mL/min Normal >60 [facility] Comment on above: Result Comment: Afri can [place] GFR Calc Performed By: #### L 500.2500 #### [facility] [address] [place], [address] GAP 8 Normal 5-15 [facility] Comment on above: Performed By: #### L 500.2500 #### [facility] [address] [place], [address] GFR/1.73 sq M.predicted among non-blacks MDRD (S/P/Bld) [Vol rate/Area] 77 mL/min/{1.73_m2} Normal >60 [facility] [facility] Comment on above: Result Comment: Non- GFR Calc Performed By: #### L 500.2500 #### [facility] [address] [place], [address] Glucose [Mass/Vol] 115 mg/dL High 74-106 [facility] Comment on above: Result Comment: Fast ing Glucose result from 100 to 125 mg/dL suggests IMPAIRED HOMEOSTASIS per A.D.A. criteria. Performed By: #### L 500.2500 #### [facility] [address] [place], [address] Potassium [Moles/Vol] 3.2 mmol/L Low 3.5-5.1 [facility] Comment on above: Performed By: #### L 500.2500 #### [facility] [address] [place], [address] Sodium [Moles/Vol] 138 mmol/L Normal 136-145 [facility] Comment on above: Performed By: #### L [id number] #### [facility] [address] [place], [address] Urea nitrogen [Mass/Vol] 17 mg/dL Normal 7-18 [facility] Comment on above: Performed By: #### L 500.2500 #### [facility] [address] [place], [address] Basic Metabolic Profile (BMP )on 09-03-2023 BUN/CRE 26.1 RATIO High 10-20 [facility] Comment on above: Performed By: #### L 500.2500 #### [facility] [address] [place] [place], [address] CA,Total 9.9 mg/dL Normal 8.5-10.1 [facility] Comment on above: Performed By: #### L 500.2500 #### [facility] [address] [place], [address] Chloride [Moles/Vol] 101 mmol/L Normal 98-107 [facility] Comment on above: Performed By: #### L 500.2500 #### [facility] [address] [place], [address] CO2 [Moles/Vol] 28.0 mmol/L Normal 21.0-32.0 [facility] Comment on above: Performed By: #### L 500.2500 #### [facility] [address] [place], [address] Creatinine [Mass/Vol] 0.73 mg/dL Normal 0.55-1.02 [facility] Comment on above: Result Comment: The validity of the calculated GFR GFRAA in patients over 70 years has not been determined. Clinical correlation is essential. Performed By: #### L 500.2500 #### [facility] [address] [place], [address] EST GFR - AA 101 mL/min Normal >60 [facility] Comment on above: Result Comment: Afri can [place]rugu[place] GFR Calc Performed By: #### L [id number] #### [facility] [address] [place], [address] GAP 9 Normal 5-15 [facility] Comment on above: Performed By: #### L 500.2500 #### [facility] [address] [place], [address] GFR/1.73 sq M.predicted among non-blacks MDRD (S/P/Bld) [Vol rate/Area] 84 mL/min/{1.73_m2} Normal >60 [facility] Comment on above: Result Comment: Non- GFR Calc Performed By: #### L 500.2500 #### [facility] [address] [place], [address] Glucose [Mass/Vol] 116 mg/dL High 74-106 [facility] Comment on above: Result Comment: Fast ing Glucose result from 100 to 125 mg/dL suggests IMPAIRED HOMEOSTASIS per A.D.A. criteria. Performed By: #### L 500.2500 #### [facility] [address] [place], [address] Potassium [Moles/Vol] 3.3 mmol/L Low 3.5-5.1 [facility] Comment on above: Performed By: #### L 500.2500 #### [facility] [address] [place], [address] Sodium [Moles/Vol] 138 mmol/L Normal 136-145 [facility] Comment on above: Performed By: #### L [id number] #### [facility] [address] [place], [address] Urea nitrogen [Mass/Vol] 19 mg/dL High 7-18 [facility] Comment on above: Performed By: #### L 500.2500 #### [facility] [address] [place], [address] Basophil percentageOrdered B y: Solitario Waters on 06-05-2023 Chloride [Moles/Vol] 105 mmol/L 98-107 [facility] Cholesterol [Mass/Vol] 136 mg/dL <200 [facility] Comment on above: <200 mg/dL Desirable 200-240 mg/dL Borderline >240 mg/dL High Risk Glucose [Mass/Vol] 119 mg/dL 74-106 [facility] Comment on above: Fasting Glucose resu lt from 100 to 125 mg/dL suggests IMPAIRED HOMEOSTASIS per A.D.A. criteria. Potassium [Moles/Vol] 3.3 mmol/L 3.5-5.1 [facility] Sodium [Moles/Vol] 138 mmol/L 136-145 [facility] Triglyceride [Mass/Vol] 127 mg/dL <199 [facility] Comment on above: The drugs N-Acetylcy steine and Metamizole may falsely depress this assay.Serum Triglycerides Reference Interval Normal <150 mg/dL Borderline high 150 - 199 mg/dL High 200 - 499 mg/dL Very High > or = 500 mg/dL Laboratory - Chemistry and C hemistry - challengeOrdered By: Solitario Waters on 06-05-2023 Cholesterol in HDL [Mass/Vol] 30 mg/dL >40 [facility] Comment on above: The drugs N-Acetylcy steine and Metamizole may falsely depress this assay. Reference Range HDL <40 mg/dL Low HDL Cholesterol HDL >or= 60 mg/dL High HDL Cholesterol Cholesterol in LDL [Mass/Vol] 81 mg/dL 0-130 [facility] CO2 [Moles/Vol] 28.0 mmol/L 21.0-32.0 [facility] Urea nitrogen/Creatinine [Mass ratio] 25.8 mg/mg 10-20 [facility] No Panel InformationOrdered By: Solitario Waters on 06-05-2023 Estimated GFR (MDRD) Amer 114 mL/min >60 [facility] Comment on above: GFR Calc Estimated GFR (MDRD) Non-Af Amer 94 mL/min >60 [facility] Comment on above: Non- GFR Calc VLDL Cholesterol 25 mg/dL 5-40 [facility] Serum or plasma calcium kaylynn urement (mass/volume)Ordered By: Solitario Waters on 06-05-2023 Calcium [Mass/Vol] 9.5 mg/dL 8.5-10.1 [facility] Serum or plasma creatinine m easurement (mass/volume)Ordered By: Solitario Waters on 06-05-2023 Creatinine [Mass/Vol] 0.66 mg/dL 0.55-1.02 [facility] Comment on above: The validity of the calculated GFR & GFRAA in patients over 70 years has not been determined. Clinical correlation is essential. Serum or plasma urea nitroge n measurement (mass/volume)Ordered By: Solitario Waters on 06-05-2023 Urea nitrogen [Mass/Vol] 17 mg/dL 7-18 [facility] Thin prep Papanicolaou smear with manual screeningOrdered By: Solitario Waters on 06-05-2023 Thin prep Papanicolaou smear with manual screening 5 5-15 [facility] Basophil percentageOrdered B y: Solitario Waters on 12-06-2022 Bilirubin [Mass/Vol] 0.50 mg/dL 0.20-1.00 [facility] Comment on above: For patients on eltr ombopag therapy, use of Dimension [place] TBIL is not recommended. Chloride [Moles/Vol] 104 mmol/L 98-107 [facility] Cholesterol [Mass/Vol] 105 mg/dL <200 [facility] Comment on above: <200 mg/dL Desirable 200-240 mg/dL Borderline >240 mg/dL High Risk Glucose [Mass/Vol] 128 mg/dL 74-106 [facility] Comment on above: Fasting Glucose resu lt greater than or equal to 126 mg/dL suggests DIABETES MELLITUS per A.D.A. criteria. Potassium [Moles/Vol] 3.5 mmol/L 3.5-5.1 [facility] Protein [Mass/Vol] 8.7 g/dL 6.4-8.2 [facility] Sodium [Moles/Vol] 138 mmol/L 136-145 [facility] Triglyceride [Mass/Vol] 169 mg/dL <199 [facility] Comment on above: The drugs N-Acetylcy steine and Metamizole may falsely depress this assay.Serum Triglycerides Reference Interval Normal <150 mg/dL Borderline high 150 - 199 mg/dL High 200 - 499 mg/dL Very High > or = 500 mg/dL Laboratory - Chemistry and C hemistry - challengeOrdered By: Solitario Waters on 12-06-2022 ALP [Catalytic activity/Vol] 80 U/L 45-117 [facility] ALT [Catalytic activity/Vol] 58 U/L 13-56 [facility] CO2 [Moles/Vol] 25.0 mmol/L 21.0-32.0 [facility] Globulin (S) [Mass/Vol] 4.7 g/dL 2.2-4.2 [facility] Urea nitrogen/Creatinine [Mass ratio] 28.5 mg/mg 10- [facility] No Panel InformationOrdered By: Solitario Waters on 12-06-2022 Estimated GFR (MDRD) Amer 100 mL/min >60 [facility] Comment on above: GFR Calc Estimated GFR (MDRD) Non-Af Amer 83 mL/min >60 [facility] Comment on above: Non- GFR Calc Urine Microalbumin/Creatinin e Ratio 41.2 mg/g CRE <30 [facility] Serum or plasma albumin kaylynn urement (mass/volume)Ordered By: Solitario Waters on 12-06-2022 Albumin [Mass/Vol] 4.0 g/dL 3.2-5.0 [facility] Serum or plasma albumin/glob ulin mass ratioOrdered By: Solitario Waters on 12-06-2022 Albumin/Globulin [Mass ratio] 0.9 {ratio} 0.9-2.4 [facility] Serum or plasma calcium kaylynn urement (mass/volume)Ordered By: Solitario Waters on 12-06-2022 Calcium [Mass/Vol] 9.8 mg/dL 8.5-10.1 [facility] Serum or plasma cholesterol in HDL measurement (mass/volume)Ordered By: Solitario Waters on 12-06-2022 Cholesterol in HDL [Mass/Vol] 28 mg/dL >40 [facility] Comment on above: The drugs N-Acetylcy steine and Metamizole may falsely depress this assay. Reference Range HDL <40 mg/dL Low HDL Cholesterol HDL >or= 60 mg/dL High HDL Cholesterol Serum or plasma cholesterol in VLDL measurement (mass/volume)Ordered By: Solitario Waters on 12-06-2022 Cholesterol in VLDL [Mass/Vol] 34 mg/dL 5-40 [facility] Serum or plasma creatinine m easurement (mass/volume)Ordered By: Solitario Waters on 12-06-2022 Creatinine [Mass/Vol] 0.74 mg/dL 0.55-1.02 [facility] Comment on above: The validity of the calculated GFR & GFRAA in patients over 70 years has not been determined. Clinical correlation is essential. Serum or plasma low density lipoprotein (LDL) cholesterol measurement (mass/volume)Ordered By: Solitario Waters on 12-06-2022 Cholesterol in LDL [Mass/Vol] 43 mg/dL 0-130 [facility] Serum or plasma urea nitroge n measurement (mass/volume)Ordered By: Solitario Waters on 12-06-2022 Urea nitrogen [Mass/Vol] 21 mg/dL 7-18 [facility] Thin prep Papanicolaou smear with manual screeningOrdered By: Solitario Waters on 12-06-2022 Thin prep Papanicolaou smear with manual screening 27 U/L 15-37 [facility] Thin prep Papanicolaou smear with manual screening 9 5-15 [facility] Thin prep Papanicolaou smear with manual screening 19.2 mg/L NO RANGE EST. [facility] Urine creatinine measurement (mass/volume)Ordered By: Solitario Waters on 12-06-2022 Creatinine (U) [Mass/Vol] 46.60 mg/dL NO RANGE EST. [facility] Basophil percentageOrdered B y: Dr. Waters on 05-29-2022 Chloride [Moles/Vol] 106 mmol/L 98-107 [facility] Glucose [Mass/Vol] 114 mg/dL 74-106 [facility] Comment on above: Fasting Glucose resu lt from 100 to 125 mg/dL suggests IMPAIRED HOMEOSTASIS per A.D.A. criteria. Potassium [Moles/Vol] 3.6 mmol/L 3.5-5.1 [facility] Sodium [Moles/Vol] 138 mmol/L 136-145 [facility] Laboratory - Chemistry and C hemistry - challengeOrdered By: Dr. Waters on 05-29-2022 CO2 [Moles/Vol] 27.0 mmol/L 21.0-32.0 [facility] Urea nitrogen/Creatinine [Mass ratio] 19.4 mg/mg 12-06 [facility] No Panel InformationOrdered By: Dr. Waters on 05-29-2022 Estimated GFR (MDRD) Amer 112 mL/min >60 [facility] Comment on above: GFR Calc Estimated GFR (MDRD) Non-Af Amer 92 mL/min >60 [facility] Comment on above: Non- GFR Calc Urine Microalbumin/Creatinin e Ratio 42.5 mg/g CRE <30 [facility] Serum or plasma calcium kaylynn urement (mass/volume)Ordered By: Dr. Waters on 05-29-2022 Calcium [Mass/Vol] 9.3 mg/dL 8.5-10.1 [facility] Serum or plasma creatinine m easurement (mass/volume)Ordered By: Dr. Waters on 05-29-2022 Creatinine [Mass/Vol] 0.67 mg/dL 0.55-1.02 [facility] Comment on above: The validity of the calculated GFR & GFRAA in patients over 70 years has not been determined. Clinical correlation is essential. Serum or plasma urea nitroge n measurement (mass/volume)Ordered By: Dr. Waters on 05-29-2022 Urea nitrogen [Mass/Vol] 13 mg/dL 7-18 [facility] Thin prep Papanicolaou smear with manual screeningOrdered By: Dr. Waters on 05-29-2022 Thin prep Papanicolaou smear with manual screening 5 5-15 [facility] Thin prep Papanicolaou smear with manual screening 18.9 mg/L NO RANGE EST. [facility] Urine creatinine measurement (mass/volume)Ordered By: Dr. Waters on 05-29-2022 Creatinine (U) [Mass/Vol] 44.50 mg/dL NO RANGE EST. [facility] Basophil percentageon 2021 Chloride [Moles/Vol] 102 mmol/L 98-107 [facility] Work Phone: Glucose [Mass/Vol] 113 mg/dL 74-106 [facility] Work Phone: Comment on above: Fasting Glucose resu lt from 100 to 125 mg/dL suggests IMPAIRED HOMEOSTASIS per A.D.A. criteria. Potassium [Moles/Vol] 3.2 mmol/L 3.5-5.1 [facility] Work Phone: Sodium [Moles/Vol] 139 mmol/L 136-145 [facility] Work Phone: Laboratory - Chemistry and C hemistry - challengeon 06-04-2021 CO2 [Moles/Vol] 27.0 mmol/L 21.0-32.0 [facility] Work Phone: Urea nitrogen/Creatinine [Mass ratio] 22.5 mg/mg 10-20 [facility] Work Phone: No Panel Informationon 06-04 Estimated GFR (MDRD) Amer 112 mL/min >60 [facility] Work Phone: Comment on above: GFR Calc Estimated GFR (MDRD) Non-Af Amer 93 mL/min >60 [facility] Work Phone: Comment on above: Non- GFR Calc Serum or plasma calcium kaylynn urement (mass/volume)on 06-04-2021 Calcium [Mass/Vol] 9.7 mg/dL 8.5-10.1 [facility] Work Phone: Serum or plasma creatinine m easurement (mass/volume)on 06-04-2021 Creatinine [Mass/Vol] 0.67 mg/dL 0.55-1.02 [facility] Work Phone: Comment on above: The validity of the calculated GFR & GFRAA in patients over 70 years has not been determined. Clinical correlation is essential. Serum or plasma urea nitroge n measurement (mass/volume)on 06-04-2021 Urea nitrogen [Mass/Vol] 15 mg/dL 7-18 [facility] Work Phone: Thin prep Papanicolaou smear with manual screeningon 06-04-2021 Thin prep Papanicolaou smear with manual screening 10 5-15 [facility] Work Phone: Encounters Encounter Date Encounter Type Care Provider Facility Start: 07-28-2024 ambulatory Solitario Waters Facility:[facility] Start: 06-21-2024 End: 06-21-[address] Solitario Waters MD Work Phone: [facility] Work Phone: Start: 06-21-2024 End: 06-21-[address] Solitario Waters MD -[facility] Work Phone: Start: 06-21-2024 End: 06-21-2024 ambulatory Solitario Waters Facility:[facility] Start: 06-03-2024 End: 06-03-[address] Solitario Waters MD Work Phone: [facility] Work Phone: Start: 06-03-2024 End: 06-03-[address] Solitario Waters MD -[facility] Start: 06-03-2024 End: 06-03-2024 ambulatory Solitario Waters Facility:[facility] Start: 12-04-2023 End: 12-04-2023 ambulatory Solitario Waters Facility:[facility] Start: 09-03-2023 End: 09-03-2023 ambulatory Solitario Waters Facility:[facility] Start: 06-11-2023 End: 06-11-[address] [facility] Work Phone: Start: 06-11-2023 End: 06-11-[address] [facility] Work Phone: Start: 06-05-2023 End: 06-05-[address] [facility] Work Phone: Start: 06-05-2023 End: 06-05-2023 Patient encounter procedure [facility] Start: 12-06-2022 End: 12-06-[address] [facility] Work Phone: Start: 12-06-2022 End: 12-06-[address] [facility] Work Phone: Start: 05-29-2022 End: 05-29-[address] [facility] Work Phone: Start: 05-29-2022 End: 05-29-2022 Patient encounter procedure [facility] Start: 06-04-2021 End: 06-04-2021 Patient encounter procedure [place] [facility] Date Procedure Procedure Detail Performing Clinician Start: 06-21-2024 Screening mammography Monica Waters MD Work Phone: Start: 06-03-2024 Urine microalbumin/creatinine ratio measurement Dr. Solitario Waters MD Work Phone: Start: 06-11-2023 Screening mammography Payers Date Payer Category Payer Medicare [id number] 2023 Private Health Insurance [facility] [id number] 2023 Self-pay [id number] Medicare [id number] Private Health Insurance [facility] [id number] Unknown [id number] Unknown [id number] Unknown [id number] 63 Unknown [id number] 63 Unknown [id number] 63 Social History Date Type Detail Facility Tobacco smoking stat RUSTIS Unknown if ever smoked [facility] Work Phone: Start: 1950 Sex Assigned At Female [facility] Tobacco smoking stat RUSTIS Unknown if ever smoked [facility] Work Phone: Start: 06-08-2024 [facility] Note Date & Type Note Facility Evaluation note No assessment information availa ble [facility] Work Phone: Reason for referral (narrative) Note Date & Type Note Facility Reason for referral (narrative) No reason for referral information available [facility] Work Phone: Chief Complaint and Reason for Visit Chief Complaint LABS Chief Complaint SCREENING Chief Complaint Admit Date screening June 21, 2024 7:30am Summary Purpose Family History No Family History Records Found Advance Directives No Advanced Directives Records Found Additional Source Comments Goals (unrecognized section and content) Goals may be documented in a n alternate sectionGoals may be documented in an alternate sectionGoals may be documented in an alternate sectionGoals may be documented in an alternate sectionGoals may be documented in an alternate sectionGoals may be documented in an alternate sectionGoals may be documented in an alternate section Care Teams (unrecognized sec tion and content) Team Status: Active Member Role Status Dates Dr. Solitario Waters MD Family Provider Active Dr. Solitario Waters MD Primary Care Provider Active Team Status: Inactive Member Role Status Dates Dr. Solitario Waters MD Primary Care Provi christophe, Attending Provider, Referring Provider Active Team Status: Inactive Member Role Status Dates Dr. Solitario Waters MD Primary Care Provider, Attending Provider Active Team Status: Active Member Role Status Dates Dr. Solitario Waters MD Primary Care Provi christophe, Attending Provider, Referring Provider Active Team Status: Inactive Member Role Status Dates Dr. Solitario Waters MD Primary Care Provider Active Start: June 03, 2024 End: June 03, 2024 Dr. Solitario Waters MD Attending Provider Active Start: June 03, 2024 End: June 03, 2024 Dr. Solitario Waters MD Referring Provider Active Start: June 03, 2024 End: June 03, 2024 Team Status: Active Member Role Status Dates Dr. Solitario Waters MD Primary Care Provider Active Team Status: Inactive Member Role Status Dates Dr. Solitario Waters MD Primary Care Provider Active Start: June 21, 2024 End: June 21, 2024 Dr. Solitario Waters MD Attending Provider Active Start: June 21, 2024 End: June 21, 2024 Dr. Solitario Waters MD Referring Provider Active Start: June 21, 2024 End: June 21, 2024 INFORMATION SOURCE (unrecogn ized section and content) DATE CREATED AUTHOR 07/26/2024 [facility] FOR RECORDS PERTAINING TO PATIENTS WHO ARE OR HAVE BEEN ENROLLED IN A CHEMICAL DEPENDENCY/SUBSTANCEABUSE PROGRAM, SOME INFORMATION MAY BE OMITTED. This clinical summary was aggregated from multiple sources. Caution should be exercised in using it in the provision of clinical care. This summary normalizes information from multiple sources, and as a consequence, information in this document may materially change the coding, format and clinical context of patient data. In addition, data may be omitted in some cases. CLINICAL DECISIONS SHOULD BE BASED ON THE PRIMARY CLINICAL RECORDS. [facility] [employer] [facility]. provides no warranty or guarantee of the accuracy or completeness of information in this document.
--- NOTE | 2024-07-28 06:46 | PCM.PRE.AN2 ---
ASA Classification* ASA Classification ASA Classification: 2 Assessment & Plan Anesthesia* Anesthesia Assessment Anesthesia Assessment: Discussed sedation and/or anesthesia options, risks, benefits, and alternatives with patient/parents/legal guardian/POA. Questions invited. The patient/parents/legal guardian/POA seems to understand and agrees to proceed with anesthesia plan. Reviewed the physical assessment, medical history, allergy history and patient home medications list prior to surgery/procedure/anesthetic and documented any changes. Performed airway and anesthesia risk assessments. 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 When Was Last Pacemaker Check QUESTION #4 FULL TEXT: You/Your Family Experience fever (hyperthermia) with Anesthesia Last Oral Intake Last Oral intake: Last Oral Intake NPO since Meds taken in AM with sips of water? Meds patient instructed to take am of surgery PONV PONV - shipping point inspector: PONV - shipping point inspector Female Yes 07/26/24 09:25 HX of Motion Sickness No 07/26/24 09:25 HX of N/V After Surgery No 07/26/24 09:25 Non-Smoker Yes 07/26/24 09:25 Duration of Surgery greater No 07/26/24 09:25 than 60 minutes Number of Risk Factors 2 07/26/24 09:25 PONV Score Moderate Risk 07/26/24 09:25 Respiratory Assessment Respiratory Assessment - shipping point inspector: Respiratory Tract Infection Hx - shipping point inspector Hx Respiratory Tract Infection No 07/26/24 09:25 STOP Sleep Apnea STOP Sleep Apnea - shipping point inspector: STOP Sleep Apnea - shipping point inspector Hx Hypertension Yes 07/26/24 09:25 Hx Sleep Apnea No 07/26/24 09:25 CPAP BIPAP Do you snore loudly (louder No 07/26/24 09:25 than talking or can be heard Do you often feel tired/ No 07/26/24 09:25 fatigued/ sleepy during daytime? Has anyone observed you stop No 07/26/24 09:25 breathing during sleep? STOP Results Negative 07/26/24 09:25 QUESTION #5 FULL TEXT : Do you snore loudly (louder than talking or can be heard through closed doors)? 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 Specify any problems Hx of Preganancy in last 3 No 07/26/24 09:25 Months Nurse Filling Out Transfusion BETTY 07/26/24 09:25 & Questions: Date: 07/26/24 07/26/24 09:25 Time: :07/26/24 09:25 Patient unable to answer at this time (ie. confused, unrespo /Reproduction History /Reproductive History - shipping point inspector: /Reproductive Hx- shipping point inspector Hx Now No 07/26/24 09:25 Gestational Age (in weeks): EDC: Hx Hx Para Hx Section SAB No 07/26/24 09:25 [facility] Medical History Hx of electrocardiogram Wears dentures Wears glasses Diabetes Dietary restriction Non-smoker Shortness of breath on exertion History of stress test Home Medications ?Medication ?Instructions ?Recorded ?Last Taken ?Type amlodipine 10 mg tablet 10 mg PO DAILY 07/26/24 Unknown History clonidine HCl 0.1 mg tablet 0.1 mg PO BID 07/26/24 Unknown History empagliflozin 10 mg tablet 10 mg PO DAILY 07/26/24 Unknown History (Jardiance) hydrochlorothiazide 25 mg tablet 25 mg PO DAILY 07/26/24 Unknown History losartan 100 mg tablet 100 mg PO DAILY 07/26/24 Unknown History metformin 1,000 mg tablet 1,000 mg PO BID 07/26/24 Unknown History metoprolol tartrate 50 mg tablet 50 mg PO BID 07/26/24 Unknown History potassium chloride 20 mEq 20 meq PO DAILY 07/26/24 Unknown History tablet,extended release rosuvastatin 20 mg tablet 20 mg PO DAILY 07/26/24 Unknown History Allergy/AdvReac Type Severity Reaction Status Date / Time No Known Allergies Allergy Verified 07/26/24 09:13 Surgical History Hx of colonoscopy History of heart surgery Review of Systems (Anesthesia) ROS Narrative System reviewed and no additional complaints, except as documented.
[2024-07-28] MEDS: Lactated Ringers 1,000 ML 15 ML IV (07:30)
--- NOTE | 2024-07-28 08:00 | COLBX_PTH ---
PATIENT: ALICE HOBBS LOC: EN U#:[id number] AGE/SX: 73/F ROOM: RE07/28/[address]: Dr. Marleni Rooney MD : 1950 BED: DIS: 07/28/2024 SPEC #: [id number] RECD: 07/28/24 10:06 STATUS: LEATHA REMonika #: [id number] LULU: 07/28/24 08:[address]: Marleni Rooney DEPT: SURGICAL PATHOLOGY RECD BY: Sergo Villavicencio ENTERED: 07/28/24 10:35 SP TYPE: COLON BX OTHR DR: Dr. Solitario Waters MD Tissues: A - Rectum, NOS Procedures: Surgery Specimen Level IV HEADER OPERATION: Colonoscopy with polypectomy PRE-OP DIAGNOSIS: History of colonic polyps TISSUE SUBMITTED: A- Rectal polyp MICROSCOPIC DIAGNOSIS A. Rectum, polyp, colonoscopy: * Tubular adenoma MICROSCOPIC DESCRIPTION Slides are reviewed. GROSS DESCRIPTION A. Received in formalin labeled with the patient's name and date of . Designated as rectum polyp is a 0.6 x 0.6 x 0.2 cm saenz soft tissue fragment. Entirely submitted in 1 cassette. [facility] [place] 07/28/2024 CPT:32007
--- NOTE | 2024-07-28 08:03 | H&P.OPEN ---
[facility] - General General Date of Service: 07/28/24 HPI Narrative ALICE HOBBS, is a 73 F who presents for screening colonoscopy. Patient's last colonoscopy was 5 to 7 years ago patient does have a history of colon polyps. Patient denies any family history of colon cancer. Patient denies any chronic abdominal pain/nausea/vomiting/reflux. Patient has bowel movements daily denies any blood. PFS Medical History Hx of electrocardiogram Wears dentures Wears glasses Diabetes Dietary restriction Non-smoker Shortness of breath on exertion History of stress test Home Medications ?Medication ?Instructions ?Recorded ?Last Taken ?Type amlodipine 10 mg tablet 10 mg PO DAILY 07/26/24 07/27/24 History clonidine HCl 0.1 mg tablet 0.1 mg PO BID 07/26/24 07/27/24 History empagliflozin 10 mg tablet 10 mg PO DAILY 07/26/24 07/25/24 History (Jardiance) hydrochlorothiazide 25 mg tablet 25 mg PO DAILY 07/26/24 07/27/24 History losartan 100 mg tablet 100 mg PO DAILY 07/26/24 07/27/24 History metformin 1,000 mg tablet 1,000 mg PO BID 07/26/24 07/27/24 History metoprolol tartrate 50 mg tablet 50 mg PO BID 07/26/24 07/27/24 History potassium chloride 20 mEq 20 meq PO DAILY 07/26/24 07/27/24 History tablet,extended release rosuvastatin 20 mg tablet 20 mg PO DAILY 07/26/24 07/27/24 History Allergy/AdvReac Type Severity Reaction Status Date / Time No Known Allergies Allergy Verified 07/28/24 07:16 Surgical History Hx of colonoscopy History of heart surgery Past Medical/Surgical History Planned Operation Planned Operative Procedure(s): Colonoscopy Cardiovascular Hx Hypertension: Yes Respiratory Do You Snore Loudly (louder than talking or can be heard): No Do You Often Feel Tired/ Fatigued/ Sleepy Dring Daytime?: No Has Anyone Observed You Stop Breathing During Sleep?: No Result (for STOP score): Negative Smoking Status: Never smoker Reproduction : No Musculoskeletal Hx Arthritis: Yes Endocrine Hx Diabetes: Yes Miscellaneous Recent Exposure to Contagious Disease: No Allergies No Known Allergies Allergy (Verified 07/28/24 07:16) Discharge Is Pt Admitted From a Detention, or a [place] [facility]: No After D/C, Where Do you Plan to Go: Return Home From the PAT History Number of Risk Factors: 2 Vital Signs Vital Signs Vital Signs: 07/28/24 07:17 07/28/24 07:17 Temperature 97.6 F L Temperature Source Temporal Pulse Rate 80 Respiratory Rate 14 Respiratory Pattern Normal Blood Pressure 132/65 H Blood Pressure Mean 87 Blood Pressure Source Monitor Blood Pressure Position Semi-Fowlers Blood Pressure Location Left Arm Pulse Ox 98 Oxygen Delivery Method Room Air Weight Weight: 176 lb 5.917 oz Body Mass Index (BMI) 27.6 Physical Exam Const alert, oriented x3 and no apparent distress HEENT normocephalic and head/scalp atraumatic Resp normal respiratory effort Cardio regular rate GI soft to palpation and non-tender; Negative for non-distended Palpation: Negative for guarding Extremity no clubbing, cyanosis or edema Skin no rashes or lesions noted Neuro CN's II-XII intact bilaterally Psych mental status grossly normal Assessment & Plan Assessment/Plan (1) Hx of colonic polyp: Surgery Risks - Colonoscopy I discussed with the patient the risks of the procedure: Yes Risks Include but are not Limited To: Risks include but are not limited to: Bleeding, perforation requiring further surgery, inability to complete colonoscopy requiring barium enema.
[2024-07-28 08:35] LABS: Bedside Glucose 137 mg/dL (74-106)
--- NOTE | 2024-07-28 08:40 | OP.COLON_ITS ---
Patient Name: Petty Parekh Procedure Date: 07/28/2024 8:11 AM Date of : 1950 Age: 73 Procedure: Colonoscopy Indications: High risk colon cancer surveillance: Personal history of colonic polyps Providers: Marleni Rooney MD Referring MD: Solitario Waters MD Medicines: Monitored Anesthesia Care Patient Profile: This is a 73 year old female. Last Colonoscopy: several years ago. Complications: No immediate complications. Procedure: Pre-Anesthesia Assessment: - Prior to the procedure, a History and Physical was performed, and patient medications and allergies were reviewed. The patient's tolerance of previous anesthesia was also reviewed. The risks and benefits of the procedure and the sedation options and risks were discussed with the patient. All questions were answered, and informed consent was obtained. Prior Anticoagulants: The patient has taken no anticoagulant or antiplatelet agents. ASA Grade Assessment: Per anesthesia. After reviewing the risks and benefits, the patient was deemed in satisfactory condition to undergo the procedure. After I obtained informed consent, the scope was passed under direct vision. Throughout the procedure, the patient's blood pressure, pulse, and oxygen saturations were monitored continuously. The colonoscope was introduced through the anus and advanced to the cecum, identified by the appendiceal orifice, ileocecal valve and palpation. The colonoscopy was performed without difficulty. The patient tolerated the procedure well. The quality of the bowel preparation was good. Scope In: 8:18:37 AM Scope Withdrawal Time 0 hours 8 minutes 31 seconds Scope Out: 8:32:29 AM Total Procedure Duration Time 0 hours 13 minutes 52 seconds Findings: Hemorrhoids were found on perianal exam. Non-bleeding external and internal hemorrhoids were found. The hemorrhoids were small and Grade I (internal hemorrhoids that do not prolapse). A less than 5 mm polyp was found in the rectum. The polyp was sessile. The polyp was removed with a hot snare. Resection and retrieval were complete. Multiple small-mouthed diverticula were found in the sigmoid colon. The exam was otherwise without abnormality. Impression: - Hemorrhoids found on perianal exam. - Non-bleeding external and internal hemorrhoids. - One less than 5 mm polyp in the rectum, removed with a hot snare. Resected and retrieved. - Diverticulosis in the sigmoid colon. - The examination was otherwise normal. Recommendation: - Discharge patient to home. - High fiber diet. - Continue present medications. - Await pathology results. - Repeat colonoscopy in 5 years for surveillance based on pathology results. Procedure Code(s): --- Professional --- 37635, PT, Colonoscopy, flexible; with removal of tumor(s), polyp(s), or other lesion(s) by snare technique Diagnosis Code(s): --- Professional --- Z86.010, Personal history of colonic polyps K64.0, First degree hemorrhoids D12.8, Benign neoplasm of rectum K57.30, Diverticulosis of large intestine without perforation or abscess without bleeding CPT copyright 2021 [employer]. All rights reserved. The codes documented in this report are preliminary and upon tamale maker review may be revised to meet current compliance requirements. MD Marleni Orozco MD 07/28/2024 8:40:26 AM This report has been signed electronically. Number of Addenda: 0 Note Initiated On: 07/28/2024 8:11 AM
--- NOTE | 2024-07-28 08:41 | OP.CCLET_ITS ---
07/28/2024 Solitario Waters MD [address] [place] [address] Re : Colonoscopy procedure for Petty Parekh Dear Dr. Waters This procedure was performed on Sunday, July 28, 2024. My impressions and recommendations are as follows: Impressions : - Hemorrhoids found on perianal exam. - Non-bleeding external and internal hemorrhoids. - One less than 5 mm polyp in the rectum, removed with a hot snare. Resected and retrieved. - Diverticulosis in the sigmoid colon. - The examination was otherwise normal. Recommendations : - Discharge patient to home. - High fiber diet. - Continue present medications. - Await pathology results. - Repeat colonoscopy in 5 years for surveillance based on pathology results. My findings are described in the full procedure note, which is enclosed. If I can be of further assistance, please feel free to contact me at Doctor phone number(s): , Work: . Sincerely, MD Marleni Orozco MD 07/28/2024 8:40:26 AM This report has been signed electronically.
--- NOTE | 2024-07-28 08:41 | PCM.POST.ANE ---
Anesthesia: Postop Eval I Current Vital Signs Temperature: 97.4 F Pulse Rate: 74 Blood Pressure: 105/50 Respiratory Rate: 16 Pulse Ox: 100 Oxygen Delivery Method: Room Air Assessment Airway patent: Yes Spontaneous unlabored respirations: Yes Mental status: Awake and Calm nausea: No Vomiting: No Anesthesia Complication: No Fluid Hydration Crystalloid volume administer (ml): 500 Total IV fluid infused: 500 Progress Note Anesthesia document: Postop Eval 1 completed: Yes
--- NOTE | 2024-07-28 09:42 | PCM.POSTANE2 ---
Anesthesia Postop Eval I Sum Postop Eval Completion status Anesthesia document: Postop Eval 1 completed: Yes Anesthesia Postop Eval I Summary Anesthesia Postop Eval I Summary: Anesthesia Postop Eval I: Assessment Summary Airway patent Yes 07/28/24 08:42 [email or web address] Spontaneous unlabored Yes 07/28/24 08:42 [email or web address] respirations Mental status Awake,Calm 07/28/24 08:42 [email or web address] nausea No 07/28/24 08:42 [email or web address] Vomiting No 07/28/24 08:42 [email or web address] Anesthesia Postop Eval I: Fluid Summary Crystalloid volume administer 500 07/28/24 08:42 [email or web address] (ml) Colloids volume administered ( ml) Blood Product volume administered (ml) Total IV fluid infused 500 07/28/24 08:42 [email or web address] Anesthesia Postop Eval I: Summary Notes Anesthesia Complication No 07/28/24 08:42 [email or web address] Anesthesia Complication Comment: Post-operative progress note Anesthesia: Postop Eval II Evaluation Mental status: Awake Pain Level: 0 nausea: No Vomiting: No
== END 2024-07-28 09:19 | disposition home or self-care (01) ==
LOC: EN 06:27 → AC 06:28
PROVIDERS: PCP Family Medicine; Referring Provider Family Medicine; Visit Provider Surgery
PROC: 0DJD8ZZ Inspection of Lower Intestinal Tract, Via Natural or Artificial Opening Endoscopic (ICD-10-PCS; CPT 45378; principal; 2024-07-28 07:55)
DX: Z12.11 Encounter for screening for malignant neoplasm of colon (principal); E11.9 Type 2 diabetes mellitus without complications; D12.8 Benign neoplasm of rectum; K57.30 Diverticulosis of large intestine without perforation or abscess without bleeding; Z86.0100 Personal history of colon polyps, unspecified; K64.4 Residual hemorrhoidal skin tags; Z79.84 Long term (current) use of oral hypoglycemic drugs; Z79.899 Other long term (current) drug therapy; K64.0 First degree hemorrhoids
CPT/HCPCS: 45385; 82962; 88305; J2405

== ENCOUNTER → 2024-12-02 | Outpatient (CLI) | payer MEDICARE, SELFPAY ==
--- OUTSIDE RECORDS SUMMARY | 2024-12-02 08:46 | XMS RPT_ITS | CCD ---
Author Organization [facility] Care Team Providers Care Superintendent Terminal Name Role Phone Evelin PERES, Dr. Jerez Primary Care Provider [phone] Evelin PERES, Dr. Jerez Attending Provider Evelin PERES, Dr. Jerez Referring Provider [phone] Toribio PERES, Dr. Yepez Attending Provider Toribio PERES, Dr. Yepez Other Provider Solitario Waters Primary Care Unavailable Solitario Waters Referring Unavailable Marleni Rooney Attending Unavailable Marleni Rooney Consulting Unavailable Evelin, Solitario Referring Unavailable Marleni Rooney Attending Unavailable Evelin, Solitario Primary Care Unavailable Evelin, Solitario Primary Care Unavailable Evelin, Solitario Referring Unavailable Waters, Solitario Attending Unavailable Waters, Solitario Referring Unavailable Waters, Solitario Attending Unavailable Waters, Solitario Primary Care Unavailable Waters, Solitario Attending Unavailable Waters, Solitario Primary Care Unavailable Evelin, Solitario Attending Unavailable Evelin, Solitario Primary Care Unavailable Medications Current Medications Medication Drug Class(es) Dates Sig (Normalized) Sig (Original) amLODIPine 10 mg oral tablet (1 source) Dihydropyridine Calcium Channel Rupa Start: 07-27-19 25 take 1 tablet by mouth once daily Amlodipine 10 mg tablet Active 10 mg PO DAILY July 26, 2024 12:00am cloNIDine hydrochloride 0.1 mg oral tablet (1 source) Central alpha-2 Adrenergic Agonist Start: 07-27-19 25 take 1 tablet by mouth twice daily Clonidine Hcl 0.1 mg tablet Active 0.1 mg PO TWICE A DAY July 26, 2024 12:00am empagliflozin 10 mg oral tablet (1 source) Sodium-Glucose Cotransporter 2 Inhibitor Start: 07-27-19 25 take 1 tablet by mouth once daily Empagliflozin (Empagliflozin 10 Mg Tablet) 10 mg tablet Active 10 mg PO DAILY July 26, 2024 12:00am hydroCHLOROthiazide 25 mg oral tablet (1 source) Thiazide Diuretic Start: 07-27-19 take 1 tablet by mouth once daily Hydrochlorothiazide 25 mg tablet Active 25 mg PO DAILY July 26, 2024 12:00am losartan potassium 100 mg oral tablet (1 source) Angiotensin 2 Receptor Rupa Start: 07-27-19 take 1 tablet by mouth once daily Losartan 100 mg tablet Active 100 mg PO DAILY July 26, 2024 12:00am metFORMIN hydrochloride 1000 mg oral tablet (1 source) Biguanide Start: 07-27-19 take 1 tablet by mouth twice daily Metformin 1,000 mg tablet Active 1000 mg PO TWICE A DAY July 26, 2024 12:00am metoprolol tartrate 50 mg oral tablet (1 source) beta-Adrenergic Rupa Start: 07-27-19 take 1 tablet by mouth twice daily Metoprolol Tartrate 50 mg tablet Active 50 mg PO TWICE A DAY July 26, 2024 12:00am potassium chloride 20 meq extended release oral tablet (1 source) Start: 07-27-19 take 1 tablet by mouth once daily Potassium Chloride 20 mEq tablet extended release Active 20 meq PO DAILY July 26, 2024 12:00am rosuvastatin calcium 20 mg oral tablet (1 source) HMG-CoA Reductase Inhibitor Start: 07-27-19 take 1 tablet by mouth once daily Rosuvastatin 20 mg tablet Active 20 mg PO DAILY July 26, 2024 12:00am Problems Active Problems Problem Classification Problem Date Documented Da te Episodic/Chronic Diabetes mellitus without complication (1 source) Type 2 diabetes mellitus without complications; Translations: [Type 2 diabetes mellitus without complications] Onset: 06-08-2024 Chronic Other and unspecified benign neoplasm (2 sources) History of polyp of colon; Translations: [History of colonic polyps] 07-28-2024 Episodic Other screening for suspected conditions (not mental disorders or infectious disease) (2 sources) Encounter for screening for malignant neoplasm of colon; Translations: [Encounter for screening mammogram for malignant neoplasm of breast] Onset: 06-25-2024 Episodic Unclassified (1 source) Personal history of colon polyps, unspecified; Translations: [Personal history of colon polyps, unspecified] Onset: 08-11-2024 Past or Other Problems Problem Classification Problem Date Documented Da te Episodic/Chronic Fluid and electrolyte disorders (1 source) Hypokalemia; Translations: [Hypokalemia] Onset: 12-25-2023 Episodic Results Test Name Value Interpretation Reference Range Facility Microalb:Creat Ratio,Random URon 08-05-2024 MALB:CREAT 293.4 mg/g CRE Normal [facility] Comment on above: Result Comment: AMENDED REPORT 08/05/24 1436 MALB:CREAT previously reported as: 2933.5 mg/g CRE Performed By: #### L 500.4050, L500.4100, L502.0250 #### [facility] Laboratory [address] [place], [address] Bedside Glucoseon 07-28-2024 FINGERSTICK GLU 137 mg/dL High 74-106 [facility] Comment on above: Result Comment: YEMI RUDOLPH OF PATIENT CARE PER NURSING PROTOCOL Performed By: #### L 501.080 #### [facility] Laboratory [address], [address] Colonoscopy Reporton 025 Colonoscopy Report [facility] Medical Records Department [address] [place] [address] Colonoscopy Report MR#: [id number] Acct: [id number] Name: PETTY PAREKH Rep #: [id number] : 1950 73 From: Marleni Rooney MD PCP: Dr. Solitario Waters MD Status:[facility] Patient Name: Petty Parekh Procedure Date: 07/28/2024 8:11 AM Date of : 1950 Age: 73 Procedure: Colonoscopy Indications: High risk colon cancer surveillance: Personal history of colonic polyps Providers: Marleni Rooney MD Referring MD: Solitario Waters MD Medicines: Monitored Anesthesia Care Patient Profile: This is a 73 year old female. Last Colonoscopy: several years ago. Complications: No immediate complications. Procedure: Pre-Anesthesia Assessment: - Prior to the procedure, a History and Physical was performed, and patient medications and allergies were reviewed. The patient's tolerance of previous anesthesia was also reviewed. The risks and benefits of the procedure and the sedation options and risks were discussed with the patient. All questions were answered, and informed consent was obtained. Prior Anticoagulants: The patient has taken no anticoagulant or antiplatelet agents. ASA Grade Assessment: Per anesthesia. After reviewing the risks and benefits, the patient was deemed in satisfactory condition to undergo the procedure. After I obtained informed consent, the scope was passed under direct vision. Throughout the procedure, the patient's blood pressure, pulse, and oxygen saturations were monitored continuously. The colonoscope was introduced through the anus and advanced to the cecum, identified by the appendiceal orifice, ileocecal valve and palpation. The colonoscopy was performed without difficulty. The patient tolerated the procedure well. The quality of the bowel preparation was good. Scope In: 8:18:37 AM Scope Withdrawal Time 0 hours 8 minutes 31 seconds Scope Out: 8:32:29 AM Total Procedure Duration Time 0 hours 13 minutes 52 seconds Findings: Hemorrhoids were found on perianal exam. Non-bleeding external and internal hemorrhoids were found. The hemorrhoids were small and Grade I (internal hemorrhoids that do not prolapse). A less than 5 mm polyp was found in the rectum. The polyp was sessile. The polyp was removed with a hot snare. Resection and retrieval were complete. Multiple small-mouthed diverticula were found in the sigmoid colon. The exam was otherwise without abnormality. Impression: - Hemorrhoids found on perianal exam. - Non-bleeding external and internal hemorrhoids. - One less than 5 mm polyp in the rectum, removed with a hot snare. Resected and retrieved. - Diverticulosis in the sigmoid colon. - The examination was otherwise normal. Recommendation: - Discharge patient to home. - High fiber diet. - Continue present medications. - Await pathology results. - Repeat colonoscopy in 5 years for surveillance based on pathology results. Procedure Code(s): --- Professional --- 93207, PT, Colonoscopy, flexible; with removal of tumor(s), polyp(s), or other lesion(s) by snare technique Diagnosis Code(s): --- Professional --- Z86.010, Personal history of colonic polyps K64.0, First degree hemorrhoids D12.8, Benign neoplasm of rectum K57.30, Diverticulosis of large intestine without perforation or abscess without bleeding CPT copyright 2021 [employer]. All rights reserved. The codes documented in this report are preliminary and upon reactor fueling supervisor review may be revised to meet current compliance requirements. MD Marleni Orozco MD 07/28/2024 8:40:26 AM This report has been signed electronically. Number of Addenda: 0 Note Initiated On: 07/28/2024 8:11 AM 07/28/24839 Date Marleni Rooney MD Cosigner Signature: Date (if indicated) CC: Dr. Solitario Waters MD; Dr. Marleni Rooney MD Date Dictated: 07/28/24810 Date Transcribed: Driver Merchandiser: TR Signed [facility] deOrdered By: Marleni Rooney on 07-28-2024 Glucose [Mass/Vol] 137 mg/dL High 74-106 [facility] Comment on above: MANAGEMENT OF PATIEN T CARE PER NURSING PROTOCOL MR/POSTOP.ANEon 07-28-2024 MR/POSTOP.[facility] Medical Records Department [address] [place] [address] Anesthesia Postop Eval I 07/28/24840 MR#: [id number] Acct: [id number] Name: PETTY PAREKH Rep #: [id number] : 1950 73 From: Bertrand Harding PCP: Dr. Solitario Waters MD Status:[facility] Y Race: AA Location: [place] [address] Anesthesia: Postop Eval I Current Vital Signs Temperature: 97.4 F Pulse Rate: 74 Blood Pressure: 105/50 Respiratory Rate: 16 Pulse Ox: 100 Oxygen Delivery Method: Room Air Assessment Airway patent: Yes Spontaneous unlabored respirations: Yes Mental status: Awake and Calm nausea: No Vomiting: No Anesthesia Complication: No Fluid Hydration Crystalloid volume administer (ml): 500 Total IV fluid infused: 500 Progress Note Anesthesia document: Postop Eval 1 completed: Yes 07/28/24841 Date Bertrand Clarke Signature: Date CC: Signed Normal [facility] [id number] 07-28-2024 MR/POSTOPAN2 [facility] Medical Records Department [address] [place] [address] Anesthesia Postop Eval II 07/28/24 0942 MR#: [id number] Acct: [id number] Name: PETTY PAREKH Rep #: [id number] : 1950 73 From: Zamzam Licea CRNA PCP: Dr. Solitario Waters MD Status:[facility] Y Race: AA Location: [place] Anesthesia Postop Eval I Sum Postop Eval Completion status Anesthesia document: Postop Eval 1 completed: Yes Anesthesia Postop Eval I Summary Anesthesia Postop Eval I Summary: Anesthesia Postop Eval I: Assessment Summary Airway patent Yes 07/28/24 08:42 [email or web address] Spontaneous unlabored Yes 07/28/24 08:42 [email or web address] respirations Mental status Awake,Calm 07/28/24 08:42 [email or web address] nausea No 07/28/24 08:42 [email or web address] Vomiting No 07/28/24 08:42 [email or web address] Anesthesia Postop Eval I: Fluid Summary Crystalloid volume administer 500 07/28/24 08:42 [email or web address] (ml) Colloids volume administered ( ml) Blood Product volume administered (ml) Total IV fluid infused 500 07/28/24 08:42 [email or web address] Anesthesia Postop Eval I: Summary Notes Anesthesia Complication No 07/28/24 08:42 [email or web address] Anesthesia Complication Comment: Post-operative progress note Anesthesia: Postop Eval II Evaluation Mental status: Awake Pain Level: 0 nausea: No Vomiting: No 07/28/24 0944 Zamzam Licea CORINA Clarke Signature: Date CC: Signed Normal [facility] Surgery Specimen Level Sina 07-28-2024 Surgery Specimen Level IV Patient Age/Sex Location Account Attending Physician PETTY PAREKH 73/F EN [id number] Dr. Malreni Rooney MD Specimen: [id number] Received: 07/28/24 Status: LEATHA Block Num: [id number] Spec Type: COLON BX Subm Dr: Dr. Marleni Rooney MD HEADER OPERATION: Colonoscopy with polypectomy PRE-OP DIAGNOSIS: History of colonic polyps TISSUE SUBMITTED: A- Rectal polyp MICROSCOPIC DIAGNOSIS A. Rectum, polyp, colonoscopy: * Tubular adenoma MICROSCOPIC DESCRIPTION Slides are reviewed. GROSS DESCRIPTION A. Received in formalin labeled with the patient's name and date of . Designated as rectum polyp" is a 0.6 x 0.6 x 0.2 cm saenz soft tissue fragment. Entirely submitted in 1 cassette. [facility] 07/28/2024 CPT:28023 Patient Age/Sex Location Account Attending Physician PETTY PAREKH 73/F EN [id number] Dr. Marleni Rooney MD Signed (signature on file) Dr. Andrew Davila MD 07/29/24 5969 Normal [facility] Comment on above: Performed By: #### P SUIV ####[facility] [id number] [place], [address] MR/PAT.ANEon 07-26-2024 MR/PAT.NIRMAL [facility] Medical Records Department [address] [place] [address] PAT - Anesthesia 07/26/24 1500 MR#: [id number] Acct: [id number] Name: PETTY PAREKH Rep #: [id number] : 1950 73 From: Chip Villeda MD PCP: Dr. Solitario Waters MD Status:[facility] Y Race: AA Location: EN Pre-Assessment Diagnosis/Proposed Procedure Planned Operative Procedure(s): Colonoscopy Anesthesia History Anesthesia History - 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: Anesthesia History - 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 Hx Hospitalization No 07/26/24 09:25 Any Problems [...] take am of surgery PONV PONV - 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: PONV - 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 Female Yes 07/26/24 09:25 HX of Motion Sickness No 07/26/24 09:25 HX of N/V After Surgery No 07/26/24 09:25 Non-Smoker Yes 07/26/24 09:25 Duration of Surgery greater No 07/26/24 09:25 than 60 minutes Number of Risk Factors 2 07/26/24 09:25 PONV Score Moderate Risk 07/26/24 09:25 Respiratory Assessment Respiratory Assessment - 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: Respiratory Tract Infection Hx - 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 Hx Respiratory Tract Infection No 07/26/24 09:25 STOP Sleep Apnea STOP Sleep Apnea - 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: STOP Sleep Apnea - 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 Hx Hypertension Yes 07/26/24 09:25 Hx Sleep [...] Tobacco Use History Tobacco Use History - 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: Tobacco Use History - 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 Tobacco Use Smoking Status Never smoker 07/26/24 09:25 Hx Tobacco Use No 07/26/24 09:25 Years Smoking Packs Smoked per Day Smoking Cessation Date was within the last 15 years Hx Smoking Cessation Date Hx Smoking Cessation Counseling Hematologic Medial History Hematologic Hx - 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 Specify any problems Hx of Preganancy in last 3 No 07/26/24 09:25 Months Nurse Filling Out Transfusion JZOLLINGE 07/26/24 09:25 Questions: Date: 07/26/24 07/26/24 09:25 Time: 07/26/24 09:25 Patient unable to answer at this time (ie. 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 Hx Now No 07/26/24 09:25 Gestational Age (in weeks): EDC: Hx Hx Para Hx Section SAB No 07/26/24 09:25 [facility] Medical History (Updated 07/26/24 @ 09:38 by [...] Allergy Verifi (more content not included)... Normal [facility] Breast imaging reportOrdered By: Radha Billingsley on 06-21-2024 Study report [facility] Imaging Services [address] [place] [address] SCRN MAMM (CAD)W/MERE BILAT MR#: [id number] Acct: [id number] Name: PETTY PAREKH Rep #: [id number] : 1950 F 73 From: Jacob Billingsley DO PCP: Dr. Solitario Waters MD Status: [facility] Study:SCRN MAMM (CAD)W/MERE BILAT Date of Exa m: 06/21/24 Exam# [id number] Ordering Dr: Solitario Waters MD EXAM: SCRN [...] be mailed to the patient. Reading Location: [id number] CC: Dr. Solitario Waters MD ~ Driver Merchandiser: Signed [facility] SCRN MAMM (CAD)W/MERE BILATo n 06-21-2024 SCRN MAMM (CAD)W/MERE BILAT [facility] Imaging Services [address] [place] [address] SCRN MAMM (CAD)W/MERE BILAT MR#: [id number] Acct: [id number] Name: PETTY PAREKH Rep #: [id number] : 1950 F 73 From: Radha Boateng PCP: Dr. Solitario Waters MD Status: [facility] Study: SCRN MAMM (CAD)W/MERE BILAT Date of Exam: 07/11 Exam# [id number] Ordering Dr: Solitario Waters MD EXAM: SCRN [...] be mailed to the patient. Reading Location: [id number] CC: Dr. Solitario Waters MD Driver Merchandiser: Signed Normal [facility] Albumin DL <= 20 mg/L (U) [M ass/Vol]Ordered By: Solitario Waters on 06-03-2024 Urine Random Microalbumin 181.0 mg/L NO RANGE EST. [facility] Anion gap in Serum or Plasma Ordered By: Solitario Waters on 06-03-2024 Anion gap [Moles/Vol] 15 mmol/L 5-15 [facility] BUN/creatinine ratioOrdered By: Solitario Waters on 06-03-2024 Urea nitrogen/Creatinine [Mass ratio] 20.4 mg/mg High 10-20 [facility] Bilirubin, totalOrdered By: Solitario Waters on 06-03-2024 Bilirubin [Mass/Vol] 0.36 mg/dL 0.00-1.30 [facility] Calculated very low density lipoprotein (VLDL) cholesterol measurementOrdered By: Solitario Waters on 06-03-2024 Calculated very low density lipoprotein (VLDL) cholesterol measurement 25 mg/dL 5-40 [facility] VLDL Cholesterol 25 mg/dL 5-40 [facility] Carbon dioxide, total [Moles /volume] in Central venous bloodOrdered By: Solitario Waters on 06-03-2024 CO2 [Moles/Vol] 23.7 mmol/L 21.0-32.0 [facility] Chloride assayOrdered By: Tremayne Waters on 06-03-2024 Chloride [Moles/Vol] 99 mmol/L 98-108 [facility] Comprehensive Metabolic Prof ilon 06-03-2024 Albumin [Mass/Vol] 4.4 g/dL Normal 3.4-4.8 [facility] Comment on above: Performed By: #### L 500.4050, L500.4100, L502.0250 #### [facility] Laboratory [facility] [place] [address] [place], [address] Albumin/Globulin [Mass ratio] 1.2 {ratio} Normal 0.9-2.4 [facility] Comment on above: Performed By: #### L 500.4050, L500.4100, L502.0250 #### [facility] Laboratory [address] [place], [address] ALK PHOS 73 U/L Normal 35-104 [facility] Comment on above: Performed By: #### L 500.4050, L500.4100, L502.0250 #### [facility] Laboratory [address] [place], [address] ALT [Catalytic activity/Vol] 46 U/L High <=34 [facility] Comment on above: Performed By: #### L 500.4050, L500.4100, L502.0250 #### [facility] Laboratory [address] [place], [address] AST [Catalytic activity/Vol] 33 U/L High <=31 [facility] Comment on above: Performed By: #### L 500.4050, L500.4100, L502.0250 #### [facility] Laboratory [address] [place], [address] Bilirubin [Mass/Vol] 0.36 mg/dL Normal 0.00-1.30 [facility] Comment on above: Performed By: #### L 500.4050, L500.4100, L502.0250 #### [facility] Laboratory [address] [place], [address] BUN/CRE 20.4 RATIO High 10-20 [facility] Comment on above: Performed By: #### L 500.4050, L500.4100, L502.0250 #### [facility] Laboratory [address] [place], [address] Calcium [Mass/Vol] 10.4 mg/dL Normal 7.6-11.0 [facility] Comment on above: Performed By: #### L 500.4050, L500.4100, L502.0250 #### [facility] Laboratory [address] [place], [address] Chloride [Moles/Vol] 99 mmol/L Normal 98-108 [facility] Comment on above: Performed By: #### L 500.4050, L500.4100, L502.0250 #### [facility] Laboratory [address] [place], [address] CO2 [Moles/Vol] 23.7 mmol/L Normal 21.0-32.0 [facility] Comment on above: Performed By: #### L 500.4050, L500.4100, L502.0250 #### [facility] Laboratory [address] [place], [address] Creatinine [Mass/Vol] 0.95 mg/dL Normal 0.70-1.20 [facility] Comment on above: Performed By: #### L 500.4050, L500.4100, L502.0250 #### [facility] Laboratory [address] [place], [address] GAP 15 Normal 5-15 [facility] Comment on above: Performed By: #### L 500.4050, L500.4100, L502.0250 #### [facility] Laboratory [address] [place], [address] GFR/1.73 sq M.predicted among non-blacks MDRD (S/P/Bld) [Vol rate/Area] 64 mL/min/{1.73_m2} Normal >60 [facility] Comment on above: Result Comment: mL/m in/1.73m2 CKD-EPI Creatinine Equation (2020) Performed By: #### L 500.4050, L500.4100, L502.0250 #### [facility] Laboratory [address] [place], [address] Globulin (S) [Mass/Vol] 3.8 g/dL Normal 2.2-4.2 [facility] Comment on above: Performed By: #### L 500.4050, L500.4100, L502.0250 #### [facility] Laboratory [address] [place], [address] Glucose [Mass/Vol] 116 mg/dL High 70-99 [facility] Comment on above: Performed By: #### L 500.4050, L500.4100, L502.0250 #### [facility] Laboratory [address] [place], [address] Potassium [Moles/Vol] 3.7 mmol/L Normal 3.3-5.1 [facility] Comment on above: Performed By: #### L 500.4050, L500.4100, L502.0250 #### [facility] Laboratory [address] [place], [address] Sodium [Moles/Vol] 138 mmol/L Normal 133-145 [facility] Comment on above: Performed By: #### L 500.4050, L500.4100, L502.0250 #### [facility] Laboratory [address] [place], [address] T PROT 8.3 g/dL Normal 5.9-8.4 [facility] Comment on above: Performed By: #### L 500.4050, L500.4100, L502.0250 #### [facility] Laboratory [address] [place], [address] Urea nitrogen [Mass/Vol] 19 mg/dL Normal 4-19 [facility] Comment on above: Performed By: #### L 500.4050, L500.4100, L502.0250 #### [facility] Laboratory [address] [place], [address] Creatinine Unsp time (U) [Ma ss/Vol]Ordered By: Solitario Waters on 06-03-2024 Creatinine (U) [Mass/Vol] 61.70 mg/dL 28.00-217.00 [facility] GFR/1.73 sq M.predicted shaan g non-blacks MDRD (S/P/Bld) [Vol rate/Area]Ordered By: Solitario Waters on 06-03-2024 Estimated GFR (MDRD) Non-Af Amer 64 >60 [facility] Comment on above: mL/min/1.73m2 CKD-EP I Creatinine Equation (2020) Glomerular filtration rate ( GFR) estimation/1.73 sq m using serum, plasma, or whole bOrdered By: Solitario Waters on 06-03-2024 GFR/1.73 sq M.predicted among non-blacks MDRD (S/P/Bld) [Vol rate/Area] 64 mL/min/{1.73_m2} >60 [facility] Comment on above: mL/min/1.73m2 CKD-EP I Creatinine Equation (2020) LDL calc ser/plasOrdered By: Solitario Waters on 06-03-2024 Cholesterol in LDL [Mass/Vol] 62 mg/dL [facility] Comment on above: Vcnrillnlx=407-646 m g/dL & Higher Lzyr=687 mg/dL or greater LDL Cholesterol, Calculated 62 mg/dL [facility] Comment on above: Cpwojtilyq=968-101 m g/dL & Higher Zmco=308 mg/dL or greater Laboratory - Chemistry and C hemistry - challengeOrdered By: Solitario Waters on 06-03-2024 AST [Catalytic activity/Vol] 33 U/L High <32 [facility] Lipid Profileon 06-03-2024 CHOL:HDL 3.77 Normal [facility] Comment on above: Performed By: #### L 500.4050, L500.4100, L502.0250 #### [facility] Laboratory [address] [place], [address] Cholesterol [Mass/Vol] 118 mg/dL Normal <=200 [facility] Comment on above: Result Comment: Chol esterol level, Desirable <200 mg/dL Borderline high cholesterol 200-239 mg/dL High cholesterol >=240 mg/dL Recommendations of the NCEP Adult Treatment Panel for the following risk-cutoff thresholds for the [place] population. Performed By: #### L 500.4050, L500.4100, L502.0250 #### [facility] [address] [place], [address] Cholesterol in HDL [Mass/Vol] 31 mg/dL Low [facility] Comment on above: Result Comment: Yani onal Cholesterol Education Program (NCEP) guidelines: <40 mg/dL: Low HDL-cholesterol (major risk factor for CHD) >= 60 mg/dL: High HDL-cholesterol (negative risk factor for CHD) HDL-cholesterol is affected by a number of factors, e.g. smoking, exercise, hormones, sex and age. Performed By: #### L [id number], L500.4100, L502.0250 #### [facility] [address] [place], [address] Cholesterol in LDL [Mass/Vol] 62 mg/dL Normal [facility] Comment on above: Result Comment: Bord snbnmf=138-175 mg/dL Higher Jjad=887 mg/dL or greater Performed By: #### L [id number], L500.4100, L502.0250 #### [facility] [address] [place], [address] Cholesterol in VLDL [Mass/Vol] 25 mg/dL Normal 5-40 [facility] Comment on above: Performed By: #### L [id number], L500.4100, L502.0250 #### [facility] [address] [place], [address] Triglyceride [Mass/Vol] 124 mg/dL Normal [facility] Comment on above: Result Comment: The drugs N-Acetylcysteine and Metamizole may falsely depress this assay. Normal range: <150 mg/dL Borderline High: 150-199 mg/dL High: 200-499 mg/dL Very High: >500 mg/dL Performed By: #### L [id number], L500.4100, L502.0250 #### [facility] [place] [address], [address] Microalbumin/creat ratio urO rdered By: Solitario Waters on 06-03-2024 Urine Microalbumin/Creatinin e Ratio 2933.5 mg/g CRE [facility] Potassium (Unsp spec) [Mass/ Vol]Ordered By: Solitario Waters on 06-03-2024 Potassium [Moles/Vol] 3.7 mmol/L 3.3-5.1 [facility] Potassium measurement (mass/ volume)Ordered By: Solitario Waters on 06-03-2024 Potassium (Unsp spec) [Mass/Vol] 3.7 mmol/L 3.3-5.1 [facility] Random urine creatinine kaylynn urement (mass/volume)Ordered By: Solitario Waters on 06-03-2024 Creatinine Unsp time (U) [Mass/Vol] 61.70 mg/dL 28.00-217.00 [facility] Screening total cholesterol/ high density lipoprotein (HDL) cholesterol ratioOrdered By: Solitario Waters on 06-03-2024 Cholesterol.total/Chol esterol in HDL [Mass ratio] 3.77 {ratio} [facility] Serum creatinine measurement (mass/volume)Ordered By: Solitario Waters on 06-03-2024 Creatinine [Mass/Vol] 0.95 mg/dL 0.70-1.20 [facility] Serum globulin measurementOr dered By: Solitario Waters on 06-03-2024 Globulin (S) [Mass/Vol] 3.8 g/dL 2.2-4.2 [facility] Serum glucose measurement (m ass/volume)Ordered By: Solitario Waters on 06-03-2024 Glucose [Mass/Vol] 116 mg/dL High 70-99 [facility] Serum or plasma alanine oseguera otransferase (ALT) measurementOrdered By: Solitario Waters on 06-03-2024 ALT [Catalytic activity/Vol] 46 U/L High <35 [facility] Serum or plasma albumin kaylynn urement (mass/volume)Ordered By: Solitairo Waters on 06-03-2024 Albumin [Mass/Vol] 4.4 g/dL 3.4-4.8 [facility] Serum or plasma albumin/glob ulin mass ratioOrdered By: Solitario Waters on 06-03-2024 Albumin/Globulin [Mass ratio] 1.2 {ratio} 0.9-2.4 [facility] Serum or plasma alkaline emanuel sphatase measurementOrdered By: Solitario Waters on 06-03-2024 ALP [Catalytic activity/Vol] 72 U/L 35-104 [facility] Serum or plasma calcium kaylynn urement (mass/volume)Ordered By: Solitario Waters on 06-03-2024 Calcium [Mass/Vol] 10.4 mg/dL 7.6-11.0 [facility] Serum or plasma cholesterol in HDL measurement (mass/volume)Ordered By: Solitario Waters on 06-03-2024 Cholesterol in HDL [Mass/Vol] 31 mg/dL Low >40 [facility] Comment on above: National Cholesterol Education Program (NCEP) guidelines:<40 mg/dL: Low HDL-cholesterol (major risk factor for CHD)>= 60 mg/dL: High HDL-cholesterol (negative risk factor for CHD)HDL-cholesterol is affected by a number of factors, e.g. smoking, exercise, hormones, sex and age. Serum or plasma cholesterol measurement (mass/volume)Ordered By: Solitario Waters on 06-03-2024 Cholesterol [Mass/Vol] 118 mg/dL <201 [facility] Comment on above: Cholesterol level, D esirable <200 mg/dLBorderline high cholesterol 200-239 mg/dLHigh cholesterol >=240 mg/dLRecommendations of the NCEP Adult Treatment Panel for the following risk-cutoff thresholds for the [place] population. Serum or plasma urea nitroge n measurement (mass/volume)Ordered By: Solitario Waters on 06-03-2024 Urea nitrogen [Mass/Vol] 19 mg/dL 4-19 [facility] Sodium levelOrdered By: Solitario Waters on 06-03-2024 Sodium [Moles/Vol] 138 mmol/L 133-145 [facility] Total proteinOrdered By: Gabrielle Waters on 06-03-2024 Protein [Mass/Vol] 8.3 g/dL 5.9-8.4 [facility] Triglycerides measurementOrd ered By: Solitario Waters on 06-03-2024 Triglyceride [Mass/Vol] 124 mg/dL <199 [facility] Comment on above: The drugs N-Acetylcy steine and Metamizole may falsely depress this assay. Normal range: <150 mg/dLBorderline High: 150-199 mg/dLHigh: 200-499 mg/dLVery High: >500 mg/dL Urine albumin measurement wi th detection limit of 20 mg/L or less (mass/volume)Ordered By: Solitario Waters on 06-03-2024 Albumin DL <= 20 mg/L (U) [Mass/Vol] 181.0 mg/L NO RANGE EST. [facility] Basic Metabolic Profile (BMP )on 12-04-2023 BUN/CRE 21.7 RATIO High 12-06 [facility] Comment on above: Performed By: #### L 500.2500 #### [facility] Laboratory [address] [place], [address] CA,Total 10.3 mg/dL High 8.5-10.1 [facility] Comment on above: Performed By: #### L 500.2500 #### [facility] [address] [place], [address] Chloride [Moles/Vol] 102 mmol/L Normal 98-107 [facility] Comment on above: Performed By: #### L 500.2500 #### [facility] [address] [place], [address] CO2 [Moles/Vol] 28.0 mmol/L Normal 21.0-32.0 [facility] Comment on above: Performed By: #### L [id number] #### [facility] [address] [place], [address] Creatinine [Mass/Vol] 0.78 mg/dL Normal 0.55-1.02 [facility] Comment on above: Result Comment: The validity of the calculated GFR GFRAA in patients over 70 years has not been determined. Clinical correlation is essential. Performed By: #### L 500.2500 #### [facility] [address] [place], [address] EST GFR - AA 93 mL/min Normal >60 [facility] Comment on above: Result Comment: Afri can [place] GFR Calc Performed By: #### L 500.2500 #### [facility] [address] [place], [address] GAP 8 Normal 5-15 [facility] Comment on above: Performed By: #### L [id number] #### [facility] [address] [place], [address] GFR/1.73 sq M.predicted among non-blacks MDRD (S/P/Bld) [Vol rate/Area] 77 mL/min/{1.73_m2} Normal >60 [facility] Comment on above: Result Comment: Non- GFR Calc Performed By: #### L 500.2500 #### [facility] Laboratory [address] [place], [address] Glucose [Mass/Vol] 115 mg/dL High 74-106 [facility] Comment on above: Result Comment: Fast ing Glucose result from 100 to 125 mg/dL suggests IMPAIRED HOMEOSTASIS per A.D.A. criteria. Performed By: #### L 500.2500 #### [facility] [address] [place], [address] Potassium [Moles/Vol] 3.2 mmol/L Low 3.5-5.1 [facility] Comment on above: Performed By: #### L [id number] #### [facility] [address] [place], [address] Sodium [Moles/Vol] 138 mmol/L Normal 136-145 [facility] Comment on above: Performed By: #### L [id number] #### [facility] [address] [place], [address] Urea nitrogen [Mass/Vol] 17 mg/dL Normal 7-18 [facility] Comment on above: Performed By: #### L 500.2500 #### [facility] [address] [place], [address] Basic Metabolic Profile (BMP )on 09-03-2023 BUN/CRE 26.1 RATIO High 10-20 [facility] Comment on above: Performed By: #### L 500.2500 #### [facility] [address] [place], [address] CA,Total 9.9 mg/dL Normal 8.5-10.1 [facility] Comment on above: Performed By: #### L 500.2500 #### [facility] [address] [place], [address] Chloride [Moles/Vol] 101 mmol/L Normal 98-107 [facility] Comment on above: Performed By: #### L 500.2500 #### [facility] [address] [place], [address] CO2 [Moles/Vol] 28.0 mmol/L Normal 21.0-32.0 [facility] Comment on above: Performed By: #### L 500.2500 #### [facility] [address] [place], [address] Creatinine [Mass/Vol] 0.73 mg/dL Normal 0.55-1.02 [facility] Comment on above: Result Comment: The validity of the calculated GFR GFRAA in patients over 70 years has not been determined. Clinical correlation is essential. Performed By: #### L 500.2500 #### [facility] [address] [place], [address] EST GFR - AA 101 mL/min Normal >60 [facility] Comment on above: Result Comment: Afri can [place] GFR Calc Performed By: #### L 500.2500 #### [facility] [address] [place], [address] GAP 9 Normal 5-15 [facility] Comment on above: Performed By: #### L 500.2500 #### [facility] [address] [place], [address] GFR/1.73 sq M.predicted among non-blacks MDRD (S/P/Bld) [Vol rate/Area] 84 mL/min/{1.73_m2} Normal >60 [facility] Comment on above: Result Comment: Non- GFR Calc Performed By: #### L 500.2500 #### [facility] [address] [place], [address] Glucose [Mass/Vol] 116 mg/dL High 74-106 [facility] Comment on above: Result Comment: Fast ing Glucose result from 100 to 125 mg/dL suggests IMPAIRED HOMEOSTASIS per A.D.A. criteria. Performed By: #### L 500.2500 #### [facility] [address] [place], [address] Potassium [Moles/Vol] 3.3 mmol/L Low 3.5-5.1 [facility] Comment on above: Performed By: #### L [id number] #### [facility] [address] [place], [address] Sodium [Moles/Vol] 138 mmol/L Normal 136-145 [facility] Comment on above: Performed By: #### L [id number] #### [facility] [address] [place], [address] Urea nitrogen [Mass/Vol] 19 mg/dL High 7-18 [facility] Comment on above: Performed By: #### L 500.2500 #### [facility] [address] [place], [address] Basophil percentageOrdered B y: Solitario Waters on 06-05-2023 Chloride [Moles/Vol] 105 mmol/L 98-107 [facility] Cholesterol [Mass/Vol] 136 mg/dL <200 [facility] Comment on above: <200 mg/dL Desirable 200-240 mg/dL Borderline >240 mg/dL High Risk Glucose [Mass/Vol] 119 mg/dL 74-106 [facility] Comment on above: Fasting Glucose resu lt from 100 to 125 mg/dL suggests IMPAIRED HOMEOSTASIS per A.D.A. criteria. Potassium [Moles/Vol] 3.3 mmol/L 3.5-5.1 [facility] Sodium [Moles/Vol] 138 mmol/L 136-145 [facility] Triglyceride [Mass/Vol] 127 mg/dL <199 [facility] Comment on above: The drugs N-Acetylcy steine and Metamizole may falsely depress this assay.Serum Triglycerides Reference Interval Normal <150 mg/dL Borderline high 150 - 199 mg/dL High 200 - 499 mg/dL Very High > or = 500 mg/dL Laboratory - Chemistry and C hemistry - challengeOrdered By: Solitario Waters on 06-05-2023 Cholesterol in HDL [Mass/Vol] 30 mg/dL >40 [facility] Comment on above: The drugs N-Acetylcy steine and Metamizole may falsely depress this assay. Reference Range HDL <40 mg/dL Low HDL Cholesterol HDL >or= 60 mg/dL High HDL Cholesterol Cholesterol in LDL [Mass/Vol] 81 mg/dL 0-130 [facility] CO2 [Moles/Vol] 28.0 mmol/L 21.0-32.0 [facility] Urea nitrogen/Creatinine [Mass ratio] 25.8 mg/mg 10-20 [facility] No Panel InformationOrdered By: Solitario Waters on 06-05-2023 Estimated GFR (MDRD) Amer 114 mL/min >60 [facility] Comment on above: GFR Calc Estimated GFR (MDRD) Non-Af Amer 94 mL/min >60 [facility] Comment on above: Non- GFR Calc VLDL Cholesterol 25 mg/dL 5-40 [facility] Serum or plasma calcium kaylynn urement (mass/volume)Ordered By: Solitario Waters on 06-05-2023 Calcium [Mass/Vol] 9.5 mg/dL 8.5-10.1 [facility] Serum or plasma creatinine m easurement (mass/volume)Ordered By: Solitario Waters on 06-05-2023 Creatinine [Mass/Vol] 0.66 mg/dL 0.55-1.02 [facility] Comment on above: The validity of the calculated GFR & GFRAA in patients over 70 years has not been determined. Clinical correlation is essential. Serum or plasma urea nitroge n measurement (mass/volume)Ordered By: Solitario Waters on 06-05-2023 Urea nitrogen [Mass/Vol] 17 mg/dL -18 [facility] Thin prep Papanicolaou smear with manual screeningOrdered By: Solitario Waters on 06-05-2023 Thin prep Papanicolaou smear with manual screening 5 5-15 [facility] Basophil percentageOrdered B y: Solitario Waters on 12-06-2022 Bilirubin [Mass/Vol] 0.50 mg/dL 0.20-1.00 [facility] Comment on above: For patients on eltr ombopag therapy, use of Dimension [place] TBIL is not recommended. Chloride [Moles/Vol] 104 mmol/L 98-107 [facility] Cholesterol [Mass/Vol] 105 mg/dL <200 [facility] Comment on above: <200 mg/dL Desirable 200-240 mg/dL Borderline >240 mg/dL High Risk Glucose [Mass/Vol] 128 mg/dL 74-106 [facility] Comment on above: Fasting Glucose resu lt greater than or equal to 126 mg/dL suggests DIABETES MELLITUS per A.D.A. criteria. Potassium [Moles/Vol] 3.5 mmol/L 3.5-5.1 [facility] Protein [Mass/Vol] 8.7 g/dL 6.4-8.2 [facility] Sodium [Moles/Vol] 138 mmol/L 136-145 [facility] Triglyceride [Mass/Vol] 169 mg/dL <199 [facility] Comment on above: The drugs N-Acetylcy steine and Metamizole may falsely depress this assay.Serum Triglycerides Reference Interval Normal <150 mg/dL Borderline high 150 - 199 mg/dL High 200 - 499 mg/dL Very High > or = 500 mg/dL Laboratory - Chemistry and C hemistry - challengeOrdered By: Solitario Waters on 12-06-2022 ALP [Catalytic activity/Vol] 80 U/L 45-117 [facility] ALT [Catalytic activity/Vol] 58 U/L 13-56 [facility] CO2 [Moles/Vol] 25.0 mmol/L 21.0-32.0 [facility] Globulin (S) [Mass/Vol] 4.7 g/dL 2.2-4.2 [facility] Urea nitrogen/Creatinine [Mass ratio] 28.5 mg/mg 10- [facility] No Panel InformationOrdered By: Solitario Waters on 12-06-2022 Estimated GFR (MDRD) Amer 100 mL/min >60 [facility] Comment on above: GFR Calc Estimated GFR (MDRD) Non-Af Amer 83 mL/min >60 [facility] Comment on above: Non- GFR Calc Urine Microalbumin/Creatinin e Ratio 41.2 mg/g CRE <30 [facility] Serum or plasma albumin kaylynn urement (mass/volume)Ordered By: Soiltario Waters on 12-06-2022 Albumin [Mass/Vol] 4.0 g/dL 3.2-5.0 [facility] Serum or plasma albumin/glob ulin mass ratioOrdered By: Solitario Waters on 12-06-2022 Albumin/Globulin [Mass ratio] 0.9 {ratio} 0.9-2.4 [facility] Serum or plasma calcium kaylynn urement (mass/volume)Ordered By: Solitario Waters on 12-06-2022 Calcium [Mass/Vol] 9.8 mg/dL 8.5-10.1 [facility] Serum or plasma cholesterol in HDL measurement (mass/volume)Ordered By: Solitario Waters on 12-06-2022 Cholesterol in HDL [Mass/Vol] 28 mg/dL >40 [facility] Comment on above: The drugs N-Acetylcy steine and Metamizole may falsely depress this assay. Reference Range HDL <40 mg/dL Low HDL Cholesterol HDL >or= 60 mg/dL High HDL Cholesterol Serum or plasma cholesterol in VLDL measurement (mass/volume)Ordered By: Solitario Waters on 12-06-2022 Cholesterol in VLDL [Mass/Vol] 34 mg/dL 5-40 [facility] Serum or plasma creatinine m easurement (mass/volume)Ordered By: Solitario Waters on 12-06-2022 Creatinine [Mass/Vol] 0.74 mg/dL 0.55-1.02 [facility] Comment on above: The validity of the calculated GFR & GFRAA in patients over 70 years has not been determined. Clinical correlation is essential. Serum or plasma low density lipoprotein (LDL) cholesterol measurement (mass/volume)Ordered By: Solitario Waters on 12-06-2022 Cholesterol in LDL [Mass/Vol] 43 mg/dL 0-130 [facility] Serum or plasma urea nitroge n measurement (mass/volume)Ordered By: Solitario Waters on 12-06-2022 Urea nitrogen [Mass/Vol] 21 mg/dL 7-18 [facility] Thin prep Papanicolaou smear with manual screeningOrdered By: Solitario Waters on 12-06-2022 Thin prep Papanicolaou smear with manual screening 27 U/L 15-37 [facility] Thin prep Papanicolaou smear with manual screening 9 5-15 [facility] Thin prep Papanicolaou smear with manual screening 19.2 mg/L NO RANGE EST. [facility] Urine creatinine measurement (mass/volume)Ordered By: Solitario Waters on 12-06-2022 Creatinine (U) [Mass/Vol] 46.60 mg/dL NO RANGE EST. [facility] Basophil percentageOrdered B y: Dr. Waters on 05-29-2022 Chloride [Moles/Vol] 106 mmol/L 98-107 [facility] Glucose [Mass/Vol] 114 mg/dL 74-106 [facility] Comment on above: Fasting Glucose resu lt from 100 to 125 mg/dL suggests IMPAIRED HOMEOSTASIS per A.D.A. criteria. Potassium [Moles/Vol] 3.6 mmol/L 3.5-5.1 [facility] Sodium [Moles/Vol] 138 mmol/L 136-145 [facility] Laboratory - Chemistry and C hemistry - challengeOrdered By: Dr. Waters on 05-29-2022 CO2 [Moles/Vol] 27.0 mmol/L 21.0-32.0 [facility] Urea nitrogen/Creatinine [Mass ratio] 19.4 mg/mg 12-06 [facility] No Panel InformationOrdered By: Dr. Waters on 05-29-2022 Estimated GFR (MDRD) Amer 112 mL/min >60 [facility] Comment on above: GFR Calc Estimated GFR (MDRD) Non-Af Amer 92 mL/min >60 [facility] Comment on above: Non- GFR Calc Urine Microalbumin/Creatinin e Ratio 42.5 mg/g CRE <30 [facility] Serum or plasma calcium kaylynn urement (mass/volume)Ordered By: Dr. Waters on 05-29-2022 Calcium [Mass/Vol] 9.3 mg/dL 8.5-10.1 [facility] Serum or plasma creatinine m easurement (mass/volume)Ordered By: Dr. Waters on 05-29-2022 Creatinine [Mass/Vol] 0.67 mg/dL 0.55-1.02 [facility] Comment on above: The validity of the calculated GFR & GFRAA in patients over 70 years has not been determined. Clinical correlation is essential. Serum or plasma urea nitroge n measurement (mass/volume)Ordered By: Dr. Waters on 05-29-2022 Urea nitrogen [Mass/Vol] 13 mg/dL 7-18 [facility] Thin prep Papanicolaou smear with manual screeningOrdered By: Dr. Waters on 05-29-2022 Thin prep Papanicolaou smear with manual screening 5 5-15 [facility] Thin prep Papanicolaou smear with manual screening 18.9 mg/L NO RANGE EST. [facility] Urine creatinine measurement (mass/volume)Ordered By: Dr. Waters on 05-29-2022 Creatinine (U) [Mass/Vol] 44.50 mg/dL NO RANGE EST. [facility] Basophil percentageon 2021 Chloride [Moles/Vol] 102 mmol/L 98-107 [facility] Work Phone: Glucose [Mass/Vol] 113 mg/dL 74-106 [facility] Work Phone: Comment on above: Fasting Glucose resu lt from 100 to 125 mg/dL suggests IMPAIRED HOMEOSTASIS per A.D.A. criteria. Potassium [Moles/Vol] 3.2 mmol/L 3.5-5.1 [facility] Work Phone: Sodium [Moles/Vol] 139 mmol/L 136-145 [facility] Work Phone: Laboratory - Chemistry and C hemistry - challengeon 06-04-2021 CO2 [Moles/Vol] 27.0 mmol/L 21.0-32.0 [facility] Work Phone: Urea nitrogen/Creatinine [Mass ratio] 22.5 mg/mg 10-20 [facility] Work Phone: No Panel Informationon 06-04 Estimated GFR (MDRD) Amer 112 mL/min >60 [facility] Work Phone: Comment on above: GFR Calc Estimated GFR (MDRD) Non-Af Amer 93 mL/min >60 [facility] Work Phone: Comment on above: Non- GFR Calc Serum or plasma calcium kaylynn urement (mass/volume)on 06-04-2021 Calcium [Mass/Vol] 9.7 mg/dL 8.5-10.1 [facility] Work Phone: Serum or plasma creatinine m easurement (mass/volume)on 06-04-2021 Creatinine [Mass/Vol] 0.67 mg/dL 0.55-1.02 [facility] Work Phone: Comment on above: The validity of the calculated GFR & GFRAA in patients over 70 years has not been determined. Clinical correlation is essential. Serum or plasma urea nitroge n measurement (mass/volume)on 06-04-2021 Urea nitrogen [Mass/Vol] 15 mg/dL -18 [facility] Work Phone: Thin prep Papanicolaou smear with manual screeningon 06-04-2021 Thin prep Papanicolaou smear with manual screening 10 5-15 [facility] Work Phone: Vital Signs Date Time Vital Sign Value Performing Clinician Faci lity 07-28-2024 08:49-0400 Body temperature 97.5 [degF] Dr. Solitario Waters MD Work Phone: [facility] 07-28-2024 08:49-0400 Diastolic blood pressure 61 mm[Hg] Dr. Solitario Waters MD Work Phone: [facility] 07-28-2024 08:49-0400 Heart rate 79 /min Dr. Solitario Waters MD Work Phone: [facility] 07-28-2024 08:49-0400 Respiratory rate 16 /min Dr. Solitario Waters MD Work Phone: [facility] 07-28-2024 08:49-0400 SaO2% (BldA) [Mass fraction] 100 % Dr. Solitario Waters MD Work Phone: [facility] 07-28-2024 08:49-0400 Systolic blood pressure 126 mm[Hg] Dr. Solitario Waters MD Work Phone: [facility] 07-28-2024 07:17-0400 Body height 170.[address] Solitario Waters MD Work Phone: [facility] 07-28-2024 07:17-0400 Body mass index (BMI) [Ratio] 27.6 kg/m2 Dr. Solitario Waters MD Work Phone: [facility] 07-28-2024 07:17-0400 Body weight [address] Solitario Waters MD Work Phone: [facility] Encounters Encounter Date Encounter Type Care Provider Facility Start: 07-28-2024 ambulatory Solitario Waters Facility:[facility] Start: 07-28-2024 Non-patient / Non-visit Dr. Finesse Rooney MD -[facility] Start: 07-28-2024 End: 07-28-2024 Admission to same day surgery center Dr. Marleni Rooney MD -Endoscopy Work Phone: Start: 07-28-2024 End: 07-28-[address] Solitario Waters MD Work Phone: [facility] Work Phone: Start: 06-21-2024 End: 06-21-[address] Solitario Waters MD Work Phone: [facility] Work Phone: Start: 06-21-2024 End: 06-21-[address] Solitario Waters MD -Outpatient Breast Imaging Work Phone: Start: 06-21-2024 End: 06-21-2024 ambulatory Solitario Waters Facility:[facility] Start: 06-03-2024 End: 06-03-[address] Solitario Waters MD Work Phone: [facility] Work Phone: Start: 06-03-2024 End: 06-03-[address] Solitario Waters MD -[facility] Start: 06-03-2024 End: 06-03-2024 ambulatory Solitario Waters Facility:[facility] Start: 12-04-2023 End: 12-04-2023 ambulatory Solitario Waters Facility:[facility] Start: 09-03-2023 End: 09-03-2023 ambulatory Solitario Waters Facility:[facility] Start: 06-11-2023 End: 06-11-2023 ambulatory [facility] Work Phone: Start: 06-11-2023 End: 06-11-2023 Patient encounter procedure [facility]-Outpatient [facility] Work Phone: Start: 06-05-2023 End: 06-05-2023 ambulatory [facility] Work Phone: Start: 06-05-2023 End: 06-05-2023 Patient encounter procedure [facility] Start: 12-06-2022 End: 12-06-2022 ambulatory [facility] Work Phone: Start: 12-06-2022 End: 12-06-[address] [facility] Work Phone: Start: 05-29-2022 End: 05-29-2022 ambulatory [facility] Work Phone: Start: 05-29-2022 End: 05-29-2022 Patient encounter procedure [facility] Start: 06-04-2021 End: 06-04-2021 Patient encounter procedure [facility] Procedures Date Procedure Procedure Detail Performing Clinician Start: 07-28-[address] Solitario pacheco MD Work Phone: Start: 06-21-2024 Screening mammography Monica Waters MD Work Phone: Start: 06-03-2024 Urine microalbumin/creatinine ratio measurement Dr. Solitario Waters MD Work Phone: Start: 06-11-2023 Screening mammography Plan of Treatment Date Care Activity Detail Author Start: 07-28-2024 [facility] Work Phone: Payers Date Payer Category Payer Medicare [id number] 2023 Private Health Insurance [facility] [id number] 2023 Self-pay [id number] Medicare [id number] Private Health Insurance [facility] [id number] Unknown [id number] Unknown [id number] Unknown [id number] Unknown [id number] Unknown [id number] 62 Unknown [id number] Social History Date Type Detail Facility Tobacco smoking status NHIS Unknown if ever smoked [facility] Work Phone: Start: 1950 Sex Assigned At Female [facility] Tobacco smoking status NHIS Unknown if ever smoked [facility] Work Phone: Start: 06-08-2024 Sex Female (finding) [facility] Start: 07-28-2024 Tobacco smoking status NHIS Never smoked tobacco (finding) [facility] NEGATED: Highlighted row Not [facility] Goals Date Patient Goal Desired Activity /State Mental Status Date Assessment Result Facility 07-28-2024 Cognitive function Voice/Name [facility] Work Phone: 07-28-2024 Cognitive function Patient Orien tation Person;Place;Time [facility] Work Phone: Clinical Notes 07-28-2024 Note Date & Type Note Facility 07-28-2024 Consult note Note Date/Time July 28, 2024 6:46am [facility] Medical Records Department [address] [place] [address] Pre-Anesthesia Evaluation 07/28/24 0646 MR#: [id number] Acct: [id number] Name: PETTY PAREKH Rep #:[id number] : 1950 73 From: Chip Villeda MD PCP: Dr. Solitario Waters MD Status:REG S DC Y Race: AA Location: [place] [address] ASA Classification* ASA Classification ASA Classification: 2 Assessment & Plan Anesthesia* Anesthesia Assessment Anesthesia Assessment: Discussed sedation and/or anesthesia options, risks, benefits, and alternatives with patient/parents/legal guardian/POA. Questions invited. The patient/parents/legal guardian/POA seems to understand and agrees to proceedwith anesthesia plan. Reviewed the physical assessment, medical history, allergy history and patient home medications list prior to surgery/procedure/anesthetic and documented any changes. Performed airway and anesthesia risk assessments. 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 Hx Hospitalization No 07/26/24 09:25 Any Problems [...] take am of surgery PONV PONV - 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: PONV - 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 Female Yes 07/26/24 09:25 HX of Motion Sickness No 07/26/24 09:25 HX of N/V After Surgery No 07/26/24 09:25 Non-Smoker Yes 07/26/24 09:25 Duration of Surgery greater No 07/26/24 09:25 than 60 minutes Number of Risk Factors 2 07/26/24 09:25 PONV Score Moderate Risk 07/26/24 09:25 Respiratory Assessment Respiratory Assessment - 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: Respiratory Tract Infection Hx - 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 Hx Respiratory Tract Infection No 07/26/24 09:25 STOP Sleep Apnea STOP Sleep Apnea - 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: STOP Sleep Apnea - 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 Hx Hypertension Yes 07/26/24 09:25 Hx Sleep [...] Tobacco Use History Tobacco Use History - 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: Tobacco Use History - 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 Tobacco Use Smoking Status Never smoker 07/26/24 09:25 Hx Tobacco Use No 07/26/24 09:25 Years Smoking Packs Smoked per Day Smoking Cessation Date was within the last 15 years Hx Smoking Cessation Date Hx Smoking Cessation Counseling Hematologic Medial History Hematologic Hx - 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 Specify any problems Hx of Preganancy in last 3 No 07/26/24 09:25 Months Nurse Filling Out Transfusion JZOLLGERTRUDIS 07/26/24 09:25 & Questions: Date: 07/26/24 07/26/24 09:25 Time: :07/26/24 09:25 Patient unable to answer at this time (ie. 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 Hx Now No 07/26/24 09:25 Gestational Age (in weeks): EDC: Hx Hx Para Hx Section SAB No 07/26/24 09:25 [facility] Medical History Hx of electrocardiogram Wears dentures Wears glasses Diabetes Dietary restriction Non-smoker Shortness of breath on exertion History of stress test Home Medications ?Medication ?Instructions ?Recorded ?Last Taken ?Type amlodipine 10 mg tablet 10 mg PO DAILY 07/26/24 Unkn own History clonidine HCl 0.1 mg tablet 0.1 mg PO BID 07/26/24 Unk nown History empagliflozin 10 mg tablet 10 mg PO DAILY 07/26/24 Unk nown History (Jardiance) hydrochlorothiazide 25 mg tablet 25 mg PO DAILY Unknown History losartan 100 mg tablet 100 mg PO DAILY 07/26/24 Unk nown History metformin 1,000 mg tablet 1,000 mg PO BID 07/26/24 Unk nown History metoprolol tartrate 50 mg tablet 50 mg PO BID 07/26/24 Unknown History potassium chloride 20 mEq 20 meq PO DAILY 07/26/24 Unk nown History tablet,extended release rosuvastatin 20 mg tablet 20 mg PO DAILY 07/26/24 Unkn own History Allergy/AdvReac Type Severity Reaction Status Date / Time No Known Allergies Allergy Verified 07/26/24 09:13 Surgical History Hx of colonoscopy History of heart surgery Review of Systems (Anesthesia) ROS Narrative System reviewed and no additional complaints, except as documented. 07/28/2446 <Electronically signed by Chip Villeda MD > Date _ Chip Villeda MD Cosigner Signature: Date CC: ~ Signed [facility] Work Phone: 1(454) 799-140006-11-2025 Consult note [facility] Medical Records Department [address] [place] [address] Anesthesia Postop Eval I 07/28/24 0841 MR#: [id number] Acct: [id number] Name: PETTY PAREKH Rep #:[id number] : 1950 73 From: Bertrand Harding PCP: Dr. Solitario Waters MD Status:REG S DC Y Race: AA Location: [place] [address] Anesthesia: Postop Eval I Current Vital Signs Temperature: 97.4 F Pulse Rate: 74 Blood Pressure: 105/50 Respiratory Rate: 16 Pulse Ox: 100 Oxygen Delivery Method: Room Air Assessment Airway patent: Yes Spontaneous unlabored respirations: Yes Mental status: Awake and Calm nausea: No Vomiting: No Anesthesia Complication: No Fluid Hydration Crystalloid volume administer (ml): 500 Total IV fluid infused: 500 Progress Note Anesthesia document: Postop Eval 1 completed: Yes 07/28/24 0842 > Date _ Bertrand Clarke Signature: Date CC: ~ Signed [facility]06-11-2025 Procedure note [facility] Medical Records Department [address] [place] [address] Operative Report - CC Letter MR#: [id number] Acct: [id number] Name: PETTY PAREKH Rep #:[id number] : 1950 73 From: Marleni Rooney MD PCP: Dr. Solitario Waters MD Status:REG S DC 07/28/2024 Solitario Waters MD [address] [place] [address] Re : Colonoscopy procedure for Petty Parekh Dear Dr. Waters This procedure was performed on Sunday, July 28, 2024. My impressions and recommendations are as follows: Impressions : - Hemorrhoids found on perianal exam. - Non-bleeding external and internal hemorrhoids. - One less than 5 mm polyp in the rectum, removed with a hot snare. Resected and retrieved. - Diverticulosis in the sigmoid colon. - The examination was otherwise normal. Recommendations : - Discharge patient to home. - High fiber diet. - Continue present medications. - Await pathology results. - Repeat colonoscopy in 5 years for surveillance based on pathology results. My findings are described in the full procedure note, which is enclosed. If I can be of further assistance, please feel free to contact me at Doctor phone number(s): , Work: . Sincerely, MD Marleni Orozco MD 07/28/2024 8:40:26 AM This report has been signed electronically. 07/28/24839 Date _ Marleni Rooney MD Cosigner Signature: Date (if indicated) CC: Dr. Solitario Waters MD; Dr. Marleni Rooney MD ~ Date Dictated: 07/28/24810 Date Transcribed: Driver Merchandiser: TR Signed [facility]06-11-2025 Procedure note [facility] Medical Records Department [address] [facility] [address] [place] [address] Colonoscopy Report MR#: [id number] Acct: [id number] Name: PETTY PAREKH Rep #:[id number] : 1950 73 From: Marleni Rooney MD PCP: Dr. Solitario Waters MD Status:REG S DC Patient Name: Petty Parekh Procedure Date: 07/28/2024 8:11 AM Date of : 1950 Age: 73 Procedure: Colonoscopy Indications: High risk colon cancer surveillance: Personal history of colonic polyps Providers: Marleni Rooney MD Referring MD: Solitario Wtaers MD Medicines: Monitored Anesthesia Care Patient Profile: This is a 73 year old female. Last Colonoscopy: several years ago. Complications: No immediate complications. Procedure: Pre-Anesthesia Assessment: - Prior to the procedure, a History and Physical was performed, and patient medications and allergies were reviewed. The patient's tolerance of previous anesthesia was also reviewed. The risks and benefits of the procedure and the sedation options and risks were discussed with the patient. All questions were answered, and informed consent was obtained. Prior Anticoagulants: The patient has taken no anticoagulant or antiplatelet agents. ASA Grade Assessment: Per anesthesia. After reviewing the risks and benefits, the patient was deemed in satisfactory condition to undergo the procedure. After I obtained informed consent, the scope was passed under direct vision. Throughout the procedure, the patient's blood pressure, pulse, and oxygen saturations were monitored continuously. The colonoscope was introduced through the anus and advanced to the cecum, identified by the appendiceal orifice, ileocecal valve and palpation. The colonoscopy was performed without difficulty. The patient tolerated the procedure well. The quality of the bowel preparation was good. Scope In: 8:18:37 AM Scope Withdrawal Time 0 hours 8 minutes 31 seconds Scope Out: 8:32:29 AM Total Procedure Duration Time 0 hours 13 minutes 52 seconds Findings: Hemorrhoids were found on perianal exam. Non-bleeding external and internal hemorrhoids were found. The hemorrhoids were small and Grade I (internal hemorrhoids that do not prolapse). A less than 5 mm polyp was found in the rectum. The polyp was sessile. The polyp was removed with a hot snare. Resection and retrieval were complete. Multiple small-mouthed diverticula were found in the sigmoid colon. The exam was otherwise without abnormality. Impression: - Hemorrhoids found on perianal exam. - Non-bleeding external and internal hemorrhoids. - One less than 5 mm polyp in the rectum, removed with a hot snare. Resected and retrieved. - Diverticulosis in the sigmoid colon. - The examination was otherwise normal. Recommendation: - Discharge patient to home. - High fiber diet. - Continue present medications. - Await pathology results. - Repeat colonoscopy in 5 years for surveillance based on pathology results. Procedure Code(s): --- Professional --- 82697, PT, Colonoscopy, flexible; with removal of tumor(s), polyp(s), or other lesion(s) by snare technique Diagnosis Code(s): --- Professional --- Z86.010, Personal history of colonic polyps K64.0, First degree hemorrhoids D12.8, Benign neoplasm of rectum K57.30, Diverticulosis of large intestine without perforation or abscess without bleeding CPT copyright 2021 [employer]. All rights reserved. The codes documented in this report are preliminary and upon reactor fueling supervisor review may be revised to meet current compliance requirements. MD Marleni Orozco MD 07/28/2024 8:40:26 AM This report has been signed electronically. Number of Addenda: 0 Note Initiated On: 07/28/2024 8:11 AM 07/28/24 0840 Date _ Marleni Rooney MD Cosigner Signature: Date (if indicated) CC: Dr. Solitario Waters MD; Dr. Marleni Rooney MD ~ Date Dictated: 07/28/24810 Date Transcribed: Driver Merchandiser: TR Signed [facility]06-11-2025 Evaluation note* Diagnosis Onset Date Resolution Status Admit Date Hx of colonic polyp acute July 28, 2024 6:27am [facility] Work Phone: 1(887) 685-277906-11-2025 History and physical note [facility] Medical Records Department [address] [place], [place] [address] [address] History & Physical Exam 07/28/24802 MR#: [id number] Acct: [id number] Name: PETTY PAREKH Rep #:[id number] : 1950 73 From: Marleni Rooney MD PCP: Dr. Solitario Waters MD Status:REG S PA Location: [place] [address] HPI - General General Date of Service: 07/28/24 HPI Narrative PETTY PAREKH, is a 73 F who presents for screening colonoscopy. Patient's last colonoscopy was 5 to7 years ago patient does have a history of colon polyps. Patient denies any family history of coloncancer. Patient denies any chronic abdominal pain/nausea/vomiting/reflux. Patient has bowel movements daily deniesany blood. [facility] Medical History Hx of electrocardiogram Wears dentures Wears glasses Diabetes Dietary restriction Non-smoker Shortness of breath on exertion History of stress test Home Medications ?Medication ?Instructions ?Recorded ?Last Taken ?Type amlodipine 10 mg tablet 10 mg PO DAILY 07/26/2407/18 History clonidine HCl 0.1 mg tablet 0.1 mg PO BID 07/26/2412/11 History empagliflozin 10 mg tablet 10 mg PO DAILY 07/26/2410/11 History (Jardiance) hydrochlorothiazide 25 mg tablet 25 mg PO DAILY 07/27/24 History losartan 100 mg tablet 100 mg PO DAILY 07/26/2412/11 History metformin 1,000 mg tablet 1,000 mg PO BID 07/26/2412/11 History metoprolol tartrate 50 mg tablet 50 mg PO BID 07/26/24 07/27/24 History potassium chloride 20 mEq 20 meq PO DAILY 07/26/2412/11 History tablet,extended release rosuvastatin 20 mg tablet 20 mg PO DAILY 07/26/2407/18 History Allergy/AdvReac Type Severity Reaction Status Date / Time No Known Allergies Allergy Verified 07/28/24 07:16 Surgical History Hx of colonoscopy History of heart surgery Past Medical/Surgical History Planned Operation Planned Operative Procedure(s): Colonoscopy Cardiovascular Hx Hypertension: Yes Respiratory Do You Snore Loudly (louder than talking or can be heard): No Do You Often Feel Tired/ Fatigued/ Sleepy Dring Daytime?: No Has Anyone Observed You Stop Breathing During Sleep?: No Result (for STOP score): Negative Smoking Status: Never smoker Reproduction : No Musculoskeletal Hx Arthritis: Yes Endocrine Hx Diabetes: Yes Miscellaneous Recent Exposure to Contagious Disease: No Allergies No Known Allergies Allergy (Verified 07/28/24 07:16) Discharge Is Pt Admitted From a Correction, or a Retirement: No After D/C, Where Do you Plan to Go: Return Home From the [facility] History Number of Risk Factors: 2 Vital Signs Vital Signs Vital Signs: 07/28/24 07:17 07/28/24 07:17 Temperature 97.6 F L Temperature Source Temporal Pulse Rate 80 Respiratory Rate 14 Respiratory Pattern Normal Blood Pressure 132/65 H Blood Pressure Mean 87 Blood Pressure Source Monitor Blood Pressure Position Semi-Fowlers Blood Pressure Location Left Arm Pulse Ox 98 Oxygen Delivery Method Room Air Weight Weight: 176 lb 5.917 oz Body Mass Index (BMI) 27.6 Physical Exam Const alert, oriented x3 and no apparent distress HEENT normocephalic and head/scalp atraumatic Resp normal respiratory effort Cardio regular rate GI soft to palpation and non-tender; Negative for non-distended Palpation: Negative for guarding Extremity no clubbing, cyanosis or edema Skin no rashes or lesions noted Neuro CN's II-XII intact bilaterally Psych mental status grossly normal Assessment & Plan Assessment/Plan (1) Hx of colonic polyp: Surgery Risks - Colonoscopy I discussed with the patient the risks of the procedure: Yes Risks Include but are not Limited To: Risks include but are not limited to: Bleeding, perforation requiring further surgery, inability to complete colonoscopy requiring barium enema. 07/28/24 0808 Cosigner Signature (if applicable): CC: Dr. Solitario Waters MD; Dr. Marleni Rooney MD~ Signed [facility]06-11-2025 [facility] Medical Records Department [address] [place] [address] History Physical Exam 07/28/24 0803 MR#: [id number] Acct: [id number] Name: PETTY PAREKH Rep #: [id number] : 1950 73 From: Marleni Rooney MD PCP: Dr. Solitario Waters MD Status:[facility] Location: [place] [address] HPI - General General Date of Service: 07/28/24 HPI Narrative PETTY PAREKH, is a 73 F who presents for screening colonoscopy. Patient's last colonoscopy was 5 to 7 years ago patient does have a history of colon polyps. Patient denies any family history of colon cancer. Patient denies any chronic abdominal pain/nausea/vomiting/reflux. Patient has bowel movements daily denies any blood. [facility] Medical History Hx of electrocardiogram Wears dentures Wears glasses Diabetes Dietary restriction Non-smoker Shortness of breath on exertion History of stress test Home Medications ???Medication ???Instructions ???Recorded ???Last Taken ???Type amlodipine 10 mg tablet 10 mg PO DAILY 07/26/24 07/27/24 H istory clonidine HCl 0.1 mg tablet 0.1 mg PO BID 07/26/24 07/27/24 Hi story empagliflozin 10 mg tablet 10 mg PO DAILY 07/26/24 07/25/24 H istory (Jardiance) hydrochlorothiazide 25 mg tablet 25 mg PO DAILY 07/26/24 07/27/24 H istory losartan 100 mg tablet 100 mg PO DAILY 07/26/24 07/27/24 History metformin 1,000 mg tablet 1,000 mg PO BID 07/26/24 07/27/24 History metoprolol tartrate 50 mg tablet 50 mg PO BID 07/26/24 07/27/24 His tory potassium chloride 20 mEq 20 meq PO DAILY 07/26/24 07/27/24 History tablet,extended release rosuvastatin 20 mg tablet 20 mg PO DAILY 07/26/24 07/27/24 H istory Allergy/AdvReac Type Severity Reaction Status Date / Time No Known Allergies Allergy Verified 07/28/24 07:16 Surgical History Hx of colonoscopy History of heart surgery Past Medical/Surgical History Planned Operation Planned Operative Procedure(s): Colonoscopy Cardiovascular Hx Hypertension: Yes Respiratory Do You Snore Loudly (louder than talking or can be heard): No Do You Often Feel Tired/ Fatigued/ Sleepy Dring Daytime?: No Has Anyone Observed You Stop Breathing During Sleep?: No Result (for STOP score): Negative Smoking Status: Never smoker Reproduction : No Musculoskeletal Hx Arthritis: Yes Endocrine Hx Diabetes: Yes Miscellaneous Recent Exposure to Contagious Disease: No Allergies No Known Allergies Allergy (Verified 07/28/24 07:16) Discharge Is Pt Admitted From a Correction, or a Retirement: No After D/C, Where Do you Plan to Go: Return Home From the [facility] History Number of Risk Factors: 2 Vital Signs Vital Signs Vital Signs: 07/28/24 07:17 07/28/24 07:17 Temperature 97.6 F L Temperature Source Temporal Pulse Rate 80 Respiratory Rate 14 Respiratory Pattern Normal Blood Pressure 132/65 H Blood Pressure Mean 87 Blood Pressure Source Monitor Blood Pressure Position Semi-Fowlers Blood Pressure Location Left Arm Pulse Ox 98 Oxygen Delivery Method Room Air Weight Weight: 176 lb 5.917 oz Body Mass Index (BMI) 27.6 Physical Exam Const alert, oriented x3 and no apparent distress HEENT normocephalic and head/scalp atraumatic Resp normal respiratory effort Cardio regular rate GI soft to palpation and non-tender; Negative for non-distended Palpation: Negative for guarding Extremity no clubbing, cyanosis or edema Skin no rashes or lesions noted Neuro CN's II-XII intact bilaterally Psych mental status grossly normal Assessment Plan Assessment/Plan (1) Hx of colonic polyp: Surgery Risks - Colonoscopy I discussed with the patient the risks of the procedure: Yes Risks Include but are not Limited To: Risks include but are not limited to: Bleeding, perforation requiring further surgery, inability to complete colonoscopy requiring barium enema. 07/28/24 0808 Cosigner Signature (if applicable): CC: Dr. Solitario Waters MD; Dr. Marleni Rooney MD [facility]igned[facility]06[facility] Consult note [facility] Medical Records Department [address] [place] [address] Pre-Anesthesia Evaluation 07/28/24 0646 MR#: [id number] Acct: [id number] Name: PETTY PAREKH Rep #:[id number] : 1950 73 From: Chip Villeda MD PCP: Dr. Solitario Waters MD Status:REG S DC Y Race: AA Location: [place] [address] ASA Classification* ASA Classification ASA Classification: 2 Assessment & Plan Anesthesia* Anesthesia Assessment Anesthesia Assessment: Discussed sedation and/or anesthesia options, risks, benefits, and alternatives with patient/parents/legal guardian/POA. Questions invited. The patient/parents/legal guardian/POA seems to understand and agrees to proceedwith anesthesia plan. Reviewed the physical assessment, medical history, allergy history and patient home medications list prior to surgery/procedure/anesthetic and documented any changes. Performed airway and anesthesia risk assessments. 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 Hx Hospitalization No 07/26/24 09:25 Any Problems [...] take am of surgery PONV PONV - 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: PONV - 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 Female Yes 07/26/24 09:25 HX of Motion Sickness No 07/26/24 09:25 HX of N/V After Surgery No 07/26/24 09:25 Non-Smoker Yes 07/26/24 09:25 Duration of Surgery greater No 07/26/24 09:25 than 60 minutes Number of Risk Factors 2 07/26/24 09:25 PONV Score Moderate Risk 07/26/24 09:25 Respiratory Assessment Respiratory Assessment - 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: Respiratory Tract Infection Hx - 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 Hx Respiratory Tract Infection No 07/26/24 09:25 STOP Sleep Apnea STOP Sleep Apnea - 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: STOP Sleep Apnea - 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 Hx Hypertension Yes 07/26/24 09:25 Hx Sleep [...] than talking or can be heard through closeddoors)? 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 Specify any problems Hx of Preganancy in last 3 No 07/26/24 09:25 Months Nurse Filling Out Transfusion JZOLLINGE 07/26/24 09:25 & Questions: Date: 07/26/24 07/26/24 09:25 Time: 07/26/24 09:25 Patient unable to answer at this time (ie. 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 Hx Now No 07/26/24 09:25 Gestational Age (in weeks): EDC: Hx Hx Para Hx Section SAB No 07/26/24 09:25 [facility] Medical History Hx of electrocardiogram Wears dentures Wears glasses Diabetes Dietary restriction Non-smoker Shortness of breath on exertion History of stress test Home Medications ?Medication ?Instructions ?Recorded ?Last Taken ?Type amlodipine 10 mg tablet 10 mg PO DAILY 07/26/24 Unkn own History clonidine HCl 0.1 mg tablet 0.1 mg PO BID 07/26/24 Unk nown History empagliflozin 10 mg tablet 10 mg PO DAILY 07/26/24 Unk nown History (Jardiance) hydrochlorothiazide 25 mg tablet 25 mg PO DAILY Unknown History losartan 100 mg tablet 100 mg PO DAILY 07/26/24 Unk nown History metformin 1,000 mg tablet 1,000 mg PO BID 07/26/24 Unk nown History metoprolol tartrate 50 mg tablet 50 mg PO BID 07/26/24 Unknown History potassium chloride 20 mEq 20 meq PO DAILY 07/26/24 Unk nown History tablet,extended release rosuvastatin 20 mg tablet 20 mg PO DAILY 07/26/24 Unkn own History Allergy/AdvReac Type Severity Reaction Status Date / Time No Known Allergies Allergy Verified 07/26/24 09:13 Surgical History Hx of colonoscopy History of heart surgery Review of Systems (Anesthesia) ROS Narrative System reviewed and no additional complaints, except as documented. 07/28/24645 > Date _ Chip Clarke Signature: Date CC: ~ [facility]igned [facility] Bertrand Harding [facility] Note Date/Time July 28, 2024 8:42 am [facility] Medical Records Department [address] [place] [address] Anesthesia Postop Eval I 07/28/24840 MR#: [id number] Acct: [id number] Name: PETTY PAREKH Rep #:[id number] : 1950 73 From: Bertrand Harding PCP: Dr. Solitario Waters MD Status:REG S DC Y Race: AA Location: [place] [address] Anesthesia: Postop Eval I Current Vital Signs Temperature: 97.4 F Pulse Rate: 74 Blood Pressure: 105/50 Respiratory Rate: 16 Pulse Ox: 100 Oxygen Delivery Method: Room Air Assessment Airway patent: Yes Spontaneous unlabored respirations: Yes Mental status: Awake and Calm nausea: No Vomiting: No Anesthesia Complication: No Fluid Hydration Crystalloid volume administer (ml): 500 Total IV fluid infused: 500 Progress Note Anesthesia document: Postop Eval 1 completed: Yes 07/28/24841 <Electronically signed by Bertrand Harding > Date _ Bertrand Clarke Signature: Date CC: ~ Signed [facility] Work Phone: Evaluation noteNo assessment information available [facility] Work Phone: History and physical note Author Marleni Rooney [facility] Note Date/Time July 28, 2024 8:08 am [facility] Medical Records Department [address] [place] [address] History & Physical Exam 07/28/24802 MR#: [id number] Acct: [id number] Name: PETTY PAREKH Rep #:[id number] : 1950 73 From: Marleni Rooney MD PCP: Dr. Solitario Waters MD Status:REG S DC Location: [place] [address] HPI - General General Date of Service: 07/28/24 HPI Narrative PETTY PAREKH, is a 73 F who presents for screening colonoscopy. Patient's last colonoscopy was 5 to 7 years ago patient does have a history of colon polyps. Patient denies any family history of colon cancer. Patient denies any chronic abdominal pain/nausea/vomiting/reflux. Patient has bowel movements daily deniesany blood. [facility] Medical History Hx of electrocardiogram Wears dentures Wears glasses Diabetes Dietary restriction Non-smoker Shortness of breath on exertion History of stress test Home Medications ?Medication ?Instructions ?Recorded ?Last Taken ?Type amlodipine 10 mg tablet 10 mg PO DAILY 07/26/2407/18 History clonidine HCl 0.1 mg tablet 0.1 mg PO BID 07/26/2412/11 History empagliflozin 10 mg tablet 10 mg PO DAILY 07/26/2410/11 History (Jardiance) hydrochlorothiazide 25 mg tablet 25 mg PO DAILY 07/27/24 History losartan 100 mg tablet 100 mg PO DAILY 07/26/2412/11 History metformin 1,000 mg tablet 1,000 mg PO BID 07/26/2412/11 History metoprolol tartrate 50 mg tablet 50 mg PO BID 07/26/24 07/27/24 History potassium chloride 20 mEq 20 meq PO DAILY 07/26/2412/11 History tablet,extended release rosuvastatin 20 mg tablet 20 mg PO DAILY 07/26/2407/18 History Allergy/AdvReac Type Severity Reaction Status Date / Time No Known Allergies Allergy Verified 07/28/24 07:16 Surgical History Hx of colonoscopy History of heart surgery Past Medical/Surgical History Planned Operation Planned Operative Procedure(s): Colonoscopy Cardiovascular Hx Hypertension: Yes Respiratory Do You Snore Loudly (louder than talking or can be heard): No Do You Often Feel Tired/ Fatigued/ Sleepy Dring Daytime?: No Has Anyone Observed You Stop Breathing During Sleep?: No Result (for STOP score): Negative Smoking Status: Never smoker Reproduction : No Musculoskeletal Hx Arthritis: Yes Endocrine Hx Diabetes: Yes Miscellaneous Recent Exposure to Contagious Disease: No Allergies No Known Allergies Allergy (Verified 07/28/24 07:16) Discharge Is Pt Admitted From a Correction, or a Retirement: No After D/C, Where Do you Plan to Go: Return Home From the [facility] History Number of Risk Factors: 2 Vital Signs Vital Signs Vital Signs: 07/28/24 07:17 07/28/24 07:17 Temperature 97.6 F L Temperature Source Temporal Pulse Rate 80 Respiratory Rate 14 Respiratory Pattern Normal Blood Pressure 132/65 H Blood Pressure Mean 87 Blood Pressure Source Monitor Blood Pressure Position Semi-Fowlers Blood Pressure Location Left Arm Pulse Ox 98 Oxygen Delivery Method Room Air Weight Weight: 176 lb 5.917 oz Body Mass Index (BMI) 27.6 Physical Exam Const alert, oriented x3 and no apparent distress HEENT normocephalic and head/scalp atraumatic Resp normal respiratory effort Cardio regular rate GI soft to palpation and non-tender; Negative for non-distended Palpation: Negative for guarding Extremity no clubbing, cyanosis or edema Skin no rashes or lesions noted Neuro CN's II-XII intact bilaterally Psych mental status grossly normal Assessment & Plan Assessment/Plan (1) Hx of colonic polyp: Surgery Risks - Colonoscopy I discussed with the patient the risks of the procedure: Yes Risks Include but are not Limited To: Risks include but are not limited to: Bleeding, perforation requiring further surgery, inability to complete colonoscopy requiring barium enema. 07/28/24 0808 <Electronically signed by Marleni Rooney MD> Cosigner Signature (if applicable): CC: Dr. Solitario Waters MD; Dr. Marleni Rooney MD~ Signed [facility] Work Phone: Reason for referral (narrative)No reason for referral information availableWSouthview [facility] Center Work Phone: Chief Complaint and Reason for Visit Chief Complaint LABS Chief Complaint SCREENING Chief Complaint Admit Date screening June 21, 2024 7:30am Reason for Visit Admit Date Hx of colonic polyp July 28, 2024 6:27 am Advance Directives No Advanced Directives Records Found Advance Directive Response Recorded Date/ Time Do you have a Healthcare Power of Integrated Specialist? No July 26, 2024 9:25am Summary Purpose Family History No Family History Records Found Additional Source Comments Goals (unrecognized [...] June 21, 2024 End: June 21, 2024 Team Status: Inactive Member Role Status Dates Dr. Solitario Waters MD Primary Care Provider Active Start: July 28, 2024 End: July 28, 2024 Dr. Solitario Waters MD Referring Provider Active Start: July 28, 2024 End: July 28, 2024 Dr. Marleni Rooney MD Attending Provider Active Start: July 28, 2024 End: July 28, 2024 Team Status: Active Member Role Status Dates Dr. Solitario Waters MD Primary Care Provider Active Start: July 28, 2024 Dr. Solitario Waters MD Referring Provider Active Start: July 28, 2024 Dr. Marleni Rooney MD Attending Provider Active Start: July 28, 2024 Dr. Marleni Rooney MD Other Provider Active S tart: July 28, 2024 INFORMATION SOURCE (unrecogn ized section and content) DATE CREATED AUTHOR 08/12/2024 [facility] FOR RECORDS PERTAINING TO PATIENTS WHO ARE [...] BE BASED ON THE PRIMARY CLINICAL RECORDS. [employer] provides no warranty or guarantee of the accuracy or completeness of information in this document.
[2024-12-02 11:19] LABS: Anion Gap 13 (5-15); BUN 17 mg/dL (4-19); BUN/Creat Ratio 26.0 RATIO (10-20); Calcium,Total 10.2 mg/dL (7.6-11.0); Carbon Dioxide 25.9 mmol/L (21.0-32.0); Chloride 99 mmol/L (98-108); Cholesterol 109 mg/dL (<=200); Glucose 105 mg/dL (70-99); Low Density Lipoprotein Calc. 55 mg/dL; Potassium 3.6 mmol/L (3.3-5.1); Triglycerides 113 mg/dL; Very Low Density Lipoprotein 23 mg/dL (5-40); cholesterol:hdl ratio screen 3.50
== END | disposition home or self-care (01) ==
LOC: MFPLAB 08:24
PROVIDERS: PCP Family Medicine; Visit Provider Family Medicine
DX: I10 Essential (primary) hypertension (principal)
CPT/HCPCS: 36415; 80048; 80061